=== PATIENT | female | born 1935 | race Caucasian/White ===

== ENCOUNTER 2020-04-16 17:40 | IRF | payer MEDICARE, OTHER, SELFPAY ==
--- NOTE | ~2020-04-16 | CT_ITS ---
EXAMINATION: CT abdomen pelvis wo con DATE: 04/20/2020 15:05 INDICATION: Generalized abdominal pain TECHNIQUE: Computed tomography (CT) of the abdomen and pelvis was performed without intravenous contr ast. The dose-length product (DLP) was 472.91 mGy-cm. Automated exposure control and iterative recons truction technique were employed. COMPARISON: None FINDINGS: There are [id number] sized pleural effusions. There is passive atelectasis of the lo wer lobes. Calcified coronary artery atherosclerosis is noted. There is cardiomegaly. The liver, sple en, pancreas, gallbladder, and adrenal glands are normal. The right kidney is unremarkable. There is a 5.2 cm cyst of the left kidney. There is calcified atherosclerosis of the aorta and many of the ot er arteries. No pathologically enlarged abdominal or pelvic lymph nodes are identified. There are mul tiple distended loops of small bowel without focal transition point is identified. There is a small v olume of ascites small bowel mesentery pelvis. There are bilateral L5 pars defects with grade 1 anter olisthesis of L5 on S1. There are changes of right hip arthroplasty with a small amount of gas seen o verlying the lateral aspect of the hip, consistent with recent surgery. IMPRESSION: 1. Dilated small bowel, consistent with ileus versus obstruction. 2. Changes of recent right hip arthroplasty. 3. Small to moderate-sized pleural effusions. Reviewed, dictated and finalized at location A.
--- NOTE | ~2020-04-16 | XR_ITS ---
EXAMINATION: XR abdomen/kub 1V DATE: 04/21/2020 11:37 INDICATION: Right upper quadrant abdominal pain. TECHNIQUE: A supine view of the abdomen was obtained. COMPARISON: CT abdomen and pelvis 04/20/2020 FINDINGS: There are dilated loops of small bowel. The colon is normal in caliber. There is a small vo lume of stool in the colon. There is a bipolar right hip hemiarthroplasty. IMPRESSION: 1. Persistently dilated small bowel, consistent with adynamic ileus versus small bowel obstruction. Reviewed, dictated and finalized at location A. IMPRESSION: 1. Persistently dilated small bowel, consistent with adynamic ileus versus smal l bowel obstruction.
--- NOTE | ~2020-04-16 | XR_ITS ---
EXAMINATION: XR chest 2V DATE: 04/21/2020 19:29 INDICATION: Decreased breath sounds. Rales. TECHNIQUE: frontal and lateral views of the chest were obtained. COMPARISON: CT abdomen and pelvis dated 04/20/2020 FINDINGS: Small bilateral pleural effusions. Streaky opacities at the bilateral lung bases consistent with asso ciated discoid atelectasis. No pulmonary edema or pneumothorax. Tiny calcified nodules in the right l ower lung zone consistent with old granulomatous disease. Heart size is normal. Dual lead pacemaker s een with leads projecting over the expected locations of the right atrium and right ventricle. Mild t horacic and upper lumbar spondylosis. IMPRESSION: 1. Small bilateral pleural effusions with associated bibasilar atelectasis. Reviewed, dictated and finalized at location A.
--- NOTE | ~2020-04-16 | US_ITS ---
EXAMINATION: US venous doppler [facility] DATE: 04/22/2020 08:36 INDICATION: Lower limb edema. TECHNIQUE: Grayscale ultrasound images without and with compression and Doppler ultrasound images of the bilateral lower extremity veins were obtained. COMPARISON: None. FINDINGS: The visualized portions of right common femoral vein, profunda (deep) femoral vein, femoral vein, pop liteal vein, peroneal veins, posterior tibial veins, and greater saphenous vein outflow are patent. The visualized portions of left common femoral vein, profunda femoral vein, femoral vein, popliteal v ein, peroneal veins, posterior tibial veins, and greater saphenous vein outflow are patent. IMPRESSION: 1. No deep venous thrombosis. Reviewed, dictated and finalized at location A.
--- NOTE | 2020-04-16 18:13 | ADMGEN ---
This patient, Vika Hammonds, was admitted to [facility] Room 222-01. Patient/family oriented to hospital policies and general routines including ID bracelet, bed and alarms, visiting hours, pain management, procedures, bathroom and other care routines, personal items, smoking policy, room service/diet, and visiting hours. Valuables list has been completed. Information on how to activate the Rapid Response Team has been discussed. Patient/Family are encouraged to report perceived risks to care and to ask questions if they do not understand what they are told or what they should do.
[2020-04-16 19:58] VITALS: BP 160/70; PULSE 64; RESP 18; TEMP 36.4; O2SAT 99; BMI 27.1
[2020-04-16 22:00] VITALS: BP 160/59; PULSE 63; RESP 20; TEMP 36.1; O2SAT 98
[2020-04-16] MEDS: HEPARIN SODIUM 5,000 UNITS/ML VIAL 5000 UNITS SUB-Q (22:24)
[2020-04-16 22:27] VITALS: PULSE 70
[2020-04-16] MEDS: ASPIRIN 81 MG ENTERIC TABLET PO (22:27)
[2020-04-16] MEDS: atenoloL 50 MG TABLET 100 MG PO (22:27)
[2020-04-16] MEDS: SENNA/DOCUSATE SODIUM TABLET 1 TAB PO (22:28)
[2020-04-16] MEDS: SIMVASTATIN 20 MG TABLET PO (22:29)
[2020-04-16] MEDS: QUEtiapine FUMARATE 25 MG TABLET 50 MG PO (22:29)
[2020-04-16] MEDS: POLYSACCHARIDE IRON COMPLEX 150 MG CAPSULE PO (22:29)
[2020-04-16] MEDS: AMPICILLIN TRIHYDRATE 500 MG CAPSULE PO (22:31)
[2020-04-17] VITALS (12 sets, daily range): BP systolic 136–163; BP diastolic 62–73; PULSE 60–90; RESP 14–18; TEMP 36.3–36.8; O2SAT 95–100; BMI 27.1
--- NOTE | 2020-04-17 01:29 | PCRCNOTE ---
PT ORDERED ON ALBUTEROL AND ATROVENT TREATMENTS TID_RT BUT THE NEBULIZER ORDER WAS NOT ENTERED; THEREFORE, RT WAS UNAWARE. THIS WAS EXPLAINED TO GLADYS MOREIRA WHEN SHE MADE RT AWARE OF ORDER AT 0.
[2020-04-17 05:19] LABS: Basophils Absolute Auto 0.1 K/mm3 (0.0-0.1); Basophils Percent Auto 0.9 % (0.2-1.2); Eosinophils Absolute Auto 0.2 K/mm3 (0-0.3); Eosinophils Percent Auto 1.7 % (0-4.4); Hematocrit 29.3 % (37.0-47.0); Immature Granulocyte Absolute 0.09 K/mm3 (0.00-0.031); Immature Granulocyte Percent A 0.8 % (0-0.5); Lymphocytes Absolute Auto 0.99 K/mm3 (0.9-3.2); Lymphocytes Percent Auto 8.6 % (18.3-44.2); Mean Corpuscular HGB Conc 30.7 g/dl (32-36); Mean Corpuscular Hemoglobin 28.7 pg (26-34); Mean Corpuscular Volume 93.3 fl (80-100); Mean Platelet Volume 10.4 fl (7.4-10.4); Monocytes Absolute Auto 0.6 K/mm3 (0.1-0.6); Monocytes Percent Auto 5.5 % (2.6-8.5); Neutrophils Absolute Auto 9.5 K/mm3 (1.3-6.7); Neutrophils Percent Auto 82.5 % (45.5-73.1); Platelet Count Result 466 k/mm3 (150-375); Red Blood Count 3.14 M/mm3 (4.2-5.4); Red Cell Distribution Width 16.9 % (11.5-14.5); White Blood Count 11.5 K/mm3 (4.5-10.0)
[2020-04-17] MEDS: MINOCYCLINE HCL 50 MG CAPSULE 100 MG PO ×2 (05:24→19:01)
[2020-04-17] MEDS: LEVOTHYROXINE SODIUM 75 MCG TABLET PO (05:24)
[2020-04-17] MEDS: AMPICILLIN TRIHYDRATE 500 MG CAPSULE PO ×3 (05:24→21:05)
[2020-04-17] MEDS: HEPARIN SODIUM 5,000 UNITS/ML VIAL 5000 UNITS SUB-Q ×3 (05:24→21:05)
[2020-04-17 05:37] LABS: Hemoglobin A1C 4.9 % (<5.7)
[2020-04-17 06:00] LABS: Anion Gap 6 mmol/L (8-16); Blood Urea Nitrogen 33 mg/dL (7-17); Calcium 7.7 mg/dL (8.4-10.2); Carbon Dioxide 23 mmol/L (22-30); Chloride 105 mmol/L (98-107); Estimated CRCL calculation 20 ml/min; Estimated Glomerular Filt Rate 27; Glucose 98 mg/dL (65-105); Potassium 3.7 mmol/L (3.4-5.0); Sodium 134 mmol/L (137-145)
[2020-04-17 06:51] LABS: Glucose Point of Care 106 (65-105)
[2020-04-17] MEDS: IPRATROPIUM BR 0.02% INH SOLN 0.5 MG/2.5 ML VIAL INHALATION ×3 (07:34→20:08)
[2020-04-17] MEDS: ALBUTEROL SULFATE NEB 2.5 MG/0.5 ML INH INHALATION ×3 (07:34→20:08)
[2020-04-17] MEDS: atenoloL 50 MG TABLET 100 MG PO ×2 (09:19→20:26)
[2020-04-17] MEDS: amLODIPine BESYLATE 5 MG TABLET 10 MG PO (09:19)
[2020-04-17] MEDS: allopurinoL 100 MG TABLET PO (09:19)
[2020-04-17] MEDS: POLYSACCHARIDE IRON COMPLEX 150 MG CAPSULE PO ×2 (09:20→20:28)
[2020-04-17] MEDS: FUROSEMIDE 40 MG TABLET PO (09:20)
[2020-04-17] MEDS: hydrALAZINE HCL 25 MG TABLET 75 MG PO ×3 (09:20→19:01)
[2020-04-17] MEDS: POTASSIUM CHLORIDE 20 MEQ TABLET.ER PO (09:21)
--- NOTE | 2020-04-17 10:41 | PM.IMHP ---
H&P: HPI History of Present Illness Date/Time: 04/17/20 10:41 Chief complaint: Post op wound infection Right hip Narrative: Vika Hammonds is a 84 year old female who is admitted to our acute rehab with rehab impairment category of 20 - miscellaneous The to logic diagnosis is postoperative wound infection of right hip. The patient was seen [id number] at 10:00 a.m. on April 17, 2020 Next The patient is an 84-year-old right-handed 1 who is postop from initial injury of a hip fracture on February 23, 2020 and is status post bipolar hip hemiarthroplasty on February 26, 2020. The patient developed a hematoma that got infected. She was admitted to [facility] in [place] on March 23, 2020 for additional surgery for debridement. There was no involvement of the bone or joint however the wound cultures grew E faecalis and the blood cultures were positive for strep mitis. Ibrahima showed no endocarditis. Echo showed ejection fraction of 55 to 60% with no obvious diastolic dysfunction. She was discharged on April 02 on IV vancomycin. However at home she started experiencing increasing symptoms of bilateral lower extremity swelling and increased hip pain. Her laboratory values showed and increasing white cell count and she was readmitted to [facility] on April 06, 2020 on her current vancomycin regimen. CT scan showed fluid buildup with likely fibrosis, and the wound drainage showed gram positive cocci on the Gram stain. Surgery was consulted and felt that her drainage or change warrant surgical intervention. The patient underwent an irrigation and debridement of right hip on April 08, [address] Fountain. Hemo back drains were placed. Infectious Disease was consulted and she was placed on IV Linezolid I and cefepime renal dosing. Medical complications included progressive rather postoperative wound infection of the right hip, cellulitis of the right hip, acute kidney injury, hyponatremia, bilateral lower extremity edema, postoperative pain, hyperglycemia, leukocytosis acute blood-loss anemia, elevated glucose and dehydration. The patient is awake and alert very well with it she will be discharged dose on subcutaneous heparin for DVT prophylaxis The patient does not have anything to suggest COVID infection has not traveled outside and does not have any upper lower system and respiratory system Therapy was initiated at the acute care facility and the patient was transferred to us from [facility] on April 16, 2020 The patient has had major surgery in the 100 days prior to admission. The patient has had falls in the past year. The patient has had falls with injury in the past year. 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 Patient has a chair lift. She was independent in all ADLs I ADL S and mobility without assistive device patient is retired and lives with her . Patient reported that she walked 3 miles a day prior to admit. The patient denies alcohol tobacco or illicit use of drugs. Family history. First-degree relative will the heart disease hypertension diabetes mellitus. Prior level of function Patient was independent in most of the activities of daily living and walking 7 and 50 feet with no assistive device and completed 14 stairs
[2020-04-17] MEDS: SILVERGEL (ELTA) 45 ML 1 APPLIC TOPICAL (13:29)
--- NOTE | 2020-04-17 14:16 | PCNSR ---
On 04/17/20, the student, Phoebe Steiner, provided care and completed [facility] documentation on this patient. I have reviewed the student's documentation and agree with the findings.
[2020-04-17 16:41] LABS: Glucose Point of Care 112 (65-105)
[2020-04-17 20:22] LABS: Glucose Point of Care 133 (65-105)
[2020-04-17] MEDS: ASPIRIN 81 MG ENTERIC TABLET PO (20:26)
[2020-04-17] MEDS: SIMVASTATIN 20 MG TABLET PO (20:28)
[2020-04-17] MEDS: SENNA/DOCUSATE SODIUM TABLET 1 TAB PO (20:28)
[2020-04-17] MEDS: QUEtiapine FUMARATE 25 MG TABLET 50 MG PO (20:28)
[2020-04-18] VITALS (7 sets, daily range): BP systolic 145–167; BP diastolic 63–69; PULSE 60–87; RESP 12–18; TEMP 36–37.1; O2SAT 97–98
[2020-04-18] MEDS: traMADol HCL (*CRX) 50 MG TABLET PO (03:58)
[2020-04-18] MEDS: HEPARIN SODIUM 5,000 UNITS/ML VIAL 5000 UNITS SUB-Q ×3 (05:56→20:40)
[2020-04-18] MEDS: AMPICILLIN TRIHYDRATE 500 MG CAPSULE PO ×3 (05:56→20:40)
[2020-04-18] MEDS: LEVOTHYROXINE SODIUM 75 MCG TABLET PO (05:57)
[2020-04-18] MEDS: MINOCYCLINE HCL 50 MG CAPSULE 100 MG PO ×2 (05:57→17:38)
[2020-04-18 06:48] LABS: Glucose Point of Care 95 (65-105)
[2020-04-18] MEDS: ALBUTEROL SULFATE NEB 2.5 MG/0.5 ML INH INHALATION ×2 (09:00→20:21)
[2020-04-18] MEDS: IPRATROPIUM BR 0.02% INH SOLN 0.5 MG/2.5 ML VIAL INHALATION ×2 (09:01→20:21)
[2020-04-18] MEDS: atenoloL 50 MG TABLET 100 MG PO ×2 (10:37→20:38)
[2020-04-18] MEDS: POTASSIUM CHLORIDE 20 MEQ TABLET.ER PO (10:38)
[2020-04-18] MEDS: amLODIPine BESYLATE 5 MG TABLET 10 MG PO (10:38)
[2020-04-18] MEDS: POLYSACCHARIDE IRON COMPLEX 150 MG CAPSULE PO ×2 (10:38→20:39)
[2020-04-18] MEDS: hydrALAZINE HCL 25 MG TABLET 75 MG PO ×3 (10:38→17:38)
[2020-04-18] MEDS: allopurinoL 100 MG TABLET PO (10:38)
[2020-04-18] MEDS: FUROSEMIDE 40 MG TABLET PO (10:38)
--- NOTE | 2020-04-18 11:11 | RPD ---
INDIVIDUALIZED PLAN OF CARE FOR Vika Hammonds Brief Synthesis of Pre-Admission Screen, Post-Admission Evaluation and Therapy Evaluations: The patient presents to rehab with a postoperative wound infection of right hip. Comorbidities include acute kidney injury, hyponatremia, bilateral lower extremity edema, post-operative pain, hyperglycemia, leukocytosis, acute blood loss anemia, elevated glucose, dehydration, cataracts, KLUTI KAAH with hearing aides, osteoarthritis, polycythemiavera, diabetes mellitus, hypothyroidism, hyperlipidemia, hypertension, pacemaker placement (vendor [employer]). The complexity of the patient's medical management, nursing, and therapy needs require an inpatient rehab hospital stay with a physician-led interdisciplinary team approach. The patient?s needs will be best met in an intensive program vs. at a lower level of care. The patient requires physician services for medical oversight, management of post-op complications such as acute kidney injury, acute blood loss anemia, leukocytosis, uncontrolled hypertension and cellulitis in setting of present comorbidities, and pain management. The patient requires nursing services for anticoagulation therapy, diabetes training, DVT prophylactics, infection protection, medication management and education, pressure relief, and wound care. Deficits include:ADLs, Balance, Cognition, Endurance, Family Training/Education, Mobility, Pain Management, ROM, Safety, Strength, and Transfers Cost And Risk Analysis Manager/Case Management for: Discharge Planning and Patient/Family Counseling Physical Therapy: 5 days per week for 90 minutes. Treatments may include: Therapeutic Exercise, Gait Training, Neuromuscular Re-education, Transfer Training, Community Reintegration, Bed Mobility, Patient/Family Education, Wheelchair Mobility Group Therapy/Concurrent Therapy Rationales: -Improve attention span during functional activities in a distracted environment. -Enhance problem solving and/or adequate judgment skills during functional activities in a distracted environment. -Promote increased safety awareness in a distracted environment to reduce fall risk with functional tasks, transfers, and ambulation to allow a more safe, self-sufficient return to the home environment. -Improve dynamic balance skills to promote safety and independence with functional activities in a distracted environment for maximum gain. Occupational Therapy: 5 days per week for 90 minutes. Treatments may include: Therapeutic Exercise, Therapeutic Activity, Cognitive Training, Self-Care Transfer Training, Community Reintegration, Home Management, Patient/Family Education, Wheelchair Mobility Training, Energy Conservation Training Group Therapy/Concurrent Therapy Rationales: -Allow therapist to observe and teach generalization and carry-over of skills learned in individual therapy. -Enhance problem solving and sequencing skills during therapeutic activities in a distracted environment. -Promote increased safety awareness in a realistic setting to reduce fall risk with functional tasks due to visual and verbal distractions. -Increase functional level with ADLs, ADL transfers and use of adaptive equipment through therapeutic activities with others while promoting safety to allow a more safe, self-sufficient return home. Medical Prognosis: Good Anticipated Length of Stay: 14 days Rehab Goals: Eating Goal: 06-Independent Oral Hygiene Goal: 06-Independent Toileting Hygiene Goal: 06-Independent Shower/Bathe Self Goal: 05-Setup or Clean Up Assistance Upper Body Dressing Goal: 06-Independent Lower Body Dressing Goal: 05-Setup or Clean Up Assistance Putting On/Taking Off Footwear Goal: 05-Setup or Clean Up Assistance Rolling Left and Right Goal: 06-Independent Sit to Lying Goal: 06-Independent Lying to Sitting on Side of Bed Goal: 06-Independent Sit to Stand Goal: 06-Independent Chair/[id number] Transfer Goal: 06-Independent Toilet Transfer Goal: 06-Independent Ca
--- NOTE | 2020-04-18 11:48 | WPDNEURORHBP ---
Subjective Date/time seen: 04/18/20 11:48 Interval history: this 84-year-old woman is here status post wound infection of the right hip surgery from which she has recuperated she also has renal insufficiency and diabetes where the sugars are fairly decent normal the patient denies any fever chills sore throat nausea vomiting headache Review of Systems Review of Systems: All systems reviewed & are unremarkable except as noted in HPI and below Functional Status Ambulation Ability Ability to Ambulate 10 Feet: Contact Guard Ability to Ambulate 50 Feet With 2 Turns: Contact Guard Ability to Ambulate 150 Feet: Contact Guard Ambulation Assistive Devices: Walker, Wheeled Exam Const: General: comfortable and no acute distress HENMT: General nose exam: Normal nares present Mouth: Yes moist mucous membranes Eyes: General: appearance normal, both eyes and all related structures Neck: Neck: supple and no JVD Resp: Effort & Inspection: normal respiratory effort Auscultation: clear to auscultation bilaterally Cardio: Rate: regular rate Rhythm: regular rhythm GI: GI Palp: Yes Soft to palpation Auscultation: normal bowel sounds Skin: General skin exam: normal color and no rashes or lesions noted Neuro: Other: the patient is awake alert well oriented in time place and person fairly stable moving forward with the therapy and making progress Extrem: Other: the incision at the right hip is clean and healthy Psych: Mental Status: mental status grossly normal Objective Data Vital Signs Vital Signs: Vital Signs - 24 hr 04/17/20 13:05 04/17/20 13:17 04/17/20 14:00 Temperature 36.3 C L Pulse Rate 66 66 90 Respiratory Rate 16 16 16 Blood Pressure 156/73 H Pulse Oximetry 95 04/17/20 20:00 04/17/20 20:08 04/17/20 20:16 Temperature Pulse Rate 87 84 Respiratory Rate 18 18 Blood Pressure Pulse Oximetry 95 04/17/20 20:26 04/17/20 22:00 04/18/20 06:00 Temperature 36.8 C 37.1 C Pulse Rate 80 68 70 Respiratory Rate 14 12 Blood Pressure 136/62 167/69 H Pulse Oximetry 97 97 04/18/20 09:00 04/18/20 09:05 04/18/20 10:37 Temperature Pulse Rate 82 82 82 Respiratory Rate 18 18 Blood Pressure Pulse Oximetry Intake/Output Intake/Output: Intake & Output 04/15/20 04/16/20 04/17/20 04/18/20 23:59 23:59 23:59 23:59 Intake Total 240 720 240 Balance 240 720 240 Meds/Results Medications: Active Medications Generic Name Dose Route Start Last Admin Trade Name Marcos PRN Reason Stop Dose Admin Acetaminophen 650 mg 04/16/20 21:00 Tylenol Tablet PO Q4H PRN Pain (Scale Score 1-3) Albuterol 2.5 mg 04/16/20 20:00 04/18/20 09:00 Albuterol Sulf Neb 2.5mg/0.5ml INHALATION 2.5 mg TIDRT GLADIS Administration Allopurinol 100 mg 04/17/20 09:00 04/18/20 10:38 Zyloprim PO 100 mg DAILY GLADIS Administration Amlodipine Besylate 10 mg 04/17/20 09:00 04/18/20 10:38 Norvasc PO 10 mg DAILY GLADIS Administration Ampicillin 500 mg 04/16/20 22:00 04/18/20 05:56 Ampicillin Trihydrate Capsule PO 500 mg Q8HR GLADIS Administration Aspirin 81 mg 04/16/20 21:00 04/17/20 20:26 Aspirin Ec PO 81 mg HS GLADIS Administration Atenolol 100 mg 04/16/20 21:00 04/18/20 10:37 Tenormin PO 100 mg Q12HR GLADIS Administration Furosemide 40 mg 04/17/20 09:00 04/18/20 10:38 Lasix Tablet PO 40 mg DAILY GLADIS Administration Heparin Sodium (Porcine) 5,000 units 04/16/20 22:00 04/18/20 05:56 Heparin Sodium SUB-Q 5,000 units Q8HR GLADIS Administration Hydralazine HCl 75 mg 04/17/20 09:00 04/18/20 10:38 Apresoline Tablet PO 75 mg TID GLADIS Administration Ipratropium [place] 0.5 mg 04/16/20 20:00 04/18/20 09:01 Atrovent Neb INHALATION 0.5 mg TIDRT GLADIS Administration Levothyroxine Sodium 75 mcg 04/17/20 06:30 04/18/20 05:57 Synthroid PO 75 mcg DAILY@0630 GLADIS Administration Miconazole Nitrate 1 applic
--- NOTE | 2020-04-18 12:00 | PCDIET ---
Nutrition Follow-Up Complete: Inadequate protein intake related to integumentary integrity, as evidenced by lower extremity ulcer(s) and unhealed hip incision. Pt. will consume at least 90% of recommended amount of protein daily. Goal: Progressing towards goal. Continue goal. Pt current nutrition is [facility] Nutrition recommendation: will add Marcellus BID to aid in wound healing Last recorded weight is 67.3 kg, recommend weekly updated wt Bowel Motility: No BM noted Labs Reviewed:Glucose 95 Meds Noted: Tramadol, synthroid, lasix, albuterol, allpurinol, heparin, nifirex, KCL, Senna Additional Notes: Pt on appropriate diet, DBCC. Pt assessed yesterday. Average intake is good at 75%. Adding Marcellus BID today to aid in wound healing. Glucose well controlled today at 95. Following intake, skin, diet adherence, and labs every three days.
--- NOTE | 2020-04-18 13:23 | PCPTNOTE ---
Vika Hammonds was evaluated for a wheeled walker on 04/18/2020 by this physical therapist assistant professor of communication. The wheeled walker will resolve patient's mobility limitations and will be used for ADL's within the home. The patient can safely use the wheeled walker. ?The wheeled walker will resolve the patient?s mobility deficits, including impaired balance and decreased strength.
[2020-04-18] MEDS: SENNA/DOCUSATE SODIUM TABLET 1 TAB PO (20:38)
[2020-04-18] MEDS: QUEtiapine FUMARATE 25 MG TABLET 50 MG PO (20:39)
[2020-04-18] MEDS: SIMVASTATIN 20 MG TABLET PO (20:40)
[2020-04-18] MEDS: ASPIRIN 81 MG ENTERIC TABLET PO (20:40)
[2020-04-19 06:00] VITALS: BP 153/73; PULSE 62; RESP 18; TEMP 36.3; O2SAT 95
[2020-04-19] MEDS: HEPARIN SODIUM 5,000 UNITS/ML VIAL 5000 UNITS SUB-Q ×3 (06:01→20:30)
[2020-04-19] MEDS: LEVOTHYROXINE SODIUM 75 MCG TABLET PO (06:01)
[2020-04-19] MEDS: MINOCYCLINE HCL 50 MG CAPSULE 100 MG PO ×2 (06:01→18:13)
[2020-04-19] MEDS: AMPICILLIN TRIHYDRATE 500 MG CAPSULE PO ×3 (06:01→20:30)
[2020-04-19 06:51] LABS: Glucose Point of Care 121 (65-105)
[2020-04-19 09:30] VITALS: PULSE 62
[2020-04-19] MEDS: atenoloL 50 MG TABLET 100 MG PO ×2 (09:30→20:29)
[2020-04-19] MEDS: FUROSEMIDE 40 MG TABLET PO (09:31)
[2020-04-19] MEDS: amLODIPine BESYLATE 5 MG TABLET 10 MG PO (09:31)
[2020-04-19] MEDS: hydrALAZINE HCL 25 MG TABLET 75 MG PO ×3 (09:31→18:13)
[2020-04-19] MEDS: allopurinoL 100 MG TABLET PO (09:31)
[2020-04-19] MEDS: POLYSACCHARIDE IRON COMPLEX 150 MG CAPSULE PO ×2 (09:31→20:30)
[2020-04-19] MEDS: POTASSIUM CHLORIDE 20 MEQ TABLET.ER PO (09:31)
--- NOTE | 2020-04-19 12:21 | WPDNEURORHBP ---
Subjective Date/time seen: 04/19/20 12:21 84 years old lady being taken care on acute rehab with rehab impairment category of miscellaneous etiological diagnosis a postoperative wound infection of the right hip for the fracture on February 23, 2020 and status post bipolar hip hemiarthroplasty on February 26, 2020 reportedly she developed hematoma which got secondarily infected requiring additional debridement with no involvement of the bone or joint And blood cultures were positive for strep mitis. At present she is receiving minor cycline and ampicillin. She does have mild renal insufficiency Review of Systems Review of Systems: All systems reviewed & are unremarkable except as noted in HPI and below Functional Status Ambulation Ability Ability to Ambulate 10 Feet: Standby Assistance Ability to Ambulate 50 Feet With 2 Turns: Standby Assistance Ability to Ambulate 150 Feet: Contact Guard Ambulation Assistive Devices: Walker, Wheeled Transfers Ability Ability to Transfer In/Out of Chair: Contact Guard Exam Narrative: Exam Narrative: examination reveals her to be awake alert comfortable ear nose throat examination normal moist mucous membranes no drainage heart regular with no murmur lungs clear to auscultation with no rhonchi crepitation abdomen soft nontender skin normal neurologically she is awake alert oriented x3 is speech nor dysphasic not dysarthric follows instructions fairly well generally weak reflexes sluggish the wound is cleaned and healthy Objective Data Vital Signs Vital Signs: Vital Signs - 24 hr 04/18/20 14:00 04/18/20 20:25 04/18/20 22:17 Temperature 36.0 C L 36.5 C Pulse Rate 60 87 63 Respiratory Rate 18 18 18 Blood Pressure 145/63 H 154/67 H Pulse Oximetry 97 98 04/19/20 06:00 04/19/20 09:30 Temperature 36.3 C L Pulse Rate 62 62 Respiratory Rate 18 Blood Pressure 153/73 H Pulse Oximetry 95 Intake/Output Intake/Output: Intake & Output 04/16/20 04/17/20 04/18/20 04/19/20 23:59 23:59 23:59 23:59 Intake Total 240 720 720 Balance 240 720 720 Meds/Results Medications: Active Medications Generic Name Dose Route Start Last Admin Trade Name Freq PRN Reason Stop Dose Admin Acetaminophen 650 mg 04/16/20 21:00 Tylenol Tablet PO Q4H PRN Pain (Scale Score 1-3) Albuterol 2.5 mg 04/16/20 20:00 04/19/20 09:07 Albuterol Sulf Neb 2.5mg/0.5ml INHALATION Not Given TIDRT COUNT INCLUDES THE [facility] Allopurinol 100 mg 04/17/20 09:00 04/19/20 09:31 Zyloprim PO 100 mg DAILY GLADIS Administration Amlodipine Besylate 10 mg 04/17/20 09:00 04/19/20 09:31 Norvasc PO 10 mg DAILY GLADIS Administration Ampicillin 500 mg 04/16/20 22:00 04/19/20 06:01 Ampicillin Trihydrate Capsule PO 500 mg Q8HR GLADIS Administration Aspirin 81 mg 04/16/20 21:00 04/18/20 20:40 Aspirin Ec PO 81 mg HS COUNT INCLUDES THE [facility] Administration Atenolol 100 mg 04/16/20 21:00 04/19/20 09:30 Tenormin PO 100 mg Q12HR GLADIS Administration Furosemide 40 mg 04/17/20 09:00 04/19/20 09:31 Lasix Tablet PO 40 mg DAILY COUNT INCLUDES THE [facility] Administration Heparin Sodium (Porcine) 5,000 units 04/16/20 22:00 04/19/20 06:01 Heparin Sodium SUB-Q 5,000 units Q8HR GLADIS Administration Hydralazine HCl 75 mg 04/17/20 09:00 04/19/20 09:31 Apresoline Tablet PO 75 mg TID COUNT INCLUDES THE [facility] Administration Ipratropium [place] 0.5 mg 04/16/20 20:00 04/19/20 09:08 Atrovent Neb INHALATION Not Given TIDRT COUNT INCLUDES THE [facility] Levothyroxine Sodium 75 mcg 04/17/20 06:30 04/19/20 06:01 Synthroid PO 75 mcg DAILY@0630 COUNT INCLUDES THE [facility] Administration Miconazole Nitrate 1 applic 04/17/20 09:45 04/18/20 17:38 [place] TOPICAL 1 applic BID COUNT INCLUDES THE [facility] Administration Minocycline HCl 100 mg 04/17/20 06:00 04/19/20 06:01 Minocycline Hcl PO 100 mg Q12H COUNT INCLUDES THE [facility] Administration Polysaccharide Iron Complex 150 mg 04/16/20 21:00 04/19/20 09:31 Niferex-150 PO 150 mg Q12HR GLADIS Administration Potassium Chloride 20 meq
[2020-04-19 14:00] VITALS: BP 146/60; PULSE 62; RESP 18; TEMP 36.6; O2SAT 98
[2020-04-19] MEDS: SILVERGEL (ELTA) 45 ML 1 APPLIC TOPICAL (19:00)
[2020-04-19 20:29] VITALS: PULSE 66
[2020-04-19] MEDS: ASPIRIN 81 MG ENTERIC TABLET PO (20:30)
[2020-04-19] MEDS: QUEtiapine FUMARATE 25 MG TABLET 50 MG PO (20:30)
[2020-04-19] MEDS: SIMVASTATIN 20 MG TABLET PO (20:30)
[2020-04-19] MEDS: SENNA/DOCUSATE SODIUM TABLET 1 TAB PO (20:30)
[2020-04-19 21:51] VITALS: BP 148/65; PULSE 62; RESP 18; TEMP 36.4; O2SAT 97
[2020-04-20 05:31] VITALS: BP 149/54; PULSE 63; RESP 18; TEMP 36.3; O2SAT 97
[2020-04-20] MEDS: HEPARIN SODIUM 5,000 UNITS/ML VIAL 5000 UNITS SUB-Q ×3 (06:08→21:47)
[2020-04-20] MEDS: AMPICILLIN TRIHYDRATE 500 MG CAPSULE PO ×3 (06:08→21:47)
[2020-04-20] MEDS: LEVOTHYROXINE SODIUM 75 MCG TABLET PO (06:09)
[2020-04-20] MEDS: MINOCYCLINE HCL 50 MG CAPSULE 100 MG PO (06:09)
[2020-04-20 06:46] LABS: Glucose Point of Care 114 (65-105)
[2020-04-20 09:08] VITALS: PULSE 62
[2020-04-20] MEDS: FUROSEMIDE 40 MG TABLET PO (09:08)
[2020-04-20] MEDS: allopurinoL 100 MG TABLET PO (09:08)
[2020-04-20] MEDS: atenoloL 50 MG TABLET 100 MG PO ×2 (09:08→21:46)
[2020-04-20] MEDS: POTASSIUM CHLORIDE 20 MEQ TABLET.ER PO (09:09)
[2020-04-20] MEDS: amLODIPine BESYLATE 5 MG TABLET 10 MG PO (09:09)
[2020-04-20] MEDS: hydrALAZINE HCL 25 MG TABLET 75 MG PO ×2 (09:09→13:47)
[2020-04-20] MEDS: POLYSACCHARIDE IRON COMPLEX 150 MG CAPSULE PO ×2 (09:10→21:46)
[2020-04-20] MEDS: SILVERGEL (ELTA) 45 ML 1 APPLIC TOPICAL (09:11)
[2020-04-20 13:04] LABS: Basophils Absolute Auto 0.3 K/mm3 (0.0-0.1); Basophils Percent Auto 0.8 % (0.2-1.2); Eosinophils Absolute Auto 0.2 K/mm3 (0-0.3); Eosinophils Percent Auto 0.7 % (0-4.4); Hematocrit 40.7 % (37.0-47.0); Hemoglobin 12.5 g/dL (12.0-15.0); Immature Granulocyte Absolute 0.45 K/mm3 (0.00-0.031); Immature Granulocyte Percent A 1.3 % (0-0.5); Lymphocytes Absolute Auto 1.59 K/mm3 (0.9-3.2); Lymphocytes Percent Auto 4.5 % (18.3-44.2); Mean Corpuscular HGB Conc 30.7 g/dl (32-36); Mean Corpuscular Hemoglobin 28.5 pg (26-34); Mean Corpuscular Volume 92.9 fl (80-100); Mean Platelet Volume 10.8 fl (7.4-10.4); Monocytes Absolute Auto 1.4 K/mm3 (0.1-0.6); Neutrophils Absolute Auto 31.5 K/mm3 (1.3-6.7); Neutrophils Percent Auto 88.7 % (45.5-73.1); Platelet Count Result 867 k/mm3 (150-375); Red Blood Count 4.38 M/mm3 (4.2-5.4); Red Cell Distribution Width 17.2 % (11.5-14.5); White Blood Count 35.5 K/mm3 (4.5-10.0)
--- NOTE | 2020-04-20 13:09 | PCPTNOTE ---
Attempted to see patient at 0945 for Physical Therapy treatment; patient refused at that time due to feeling ill. Attempted again at 1300 and patient refused again stating she was having stomach cramps and didn't feel well.
[2020-04-20 13:16] LABS: Alanine Aminotransferase 7 U/L (4-35); Albumin Level 3.1 g/dL (3.5-5.1); Alkaline Phosphatase 72 U/L (38-126); Anion Gap 8 mmol/L (8-16); Aspartate Amino Transferase 19 U/L (14-36); Bilirubin,Total 0.4 mg/dL (0.2-1.3); Blood Urea Nitrogen 35 mg/dL (7-17); Calcium 8.8 mg/dL (8.4-10.2); Carbon Dioxide 25 mmol/L (22-30); Chloride 101 mmol/L (98-107); Estimated CRCL calculation 20 ml/min; Estimated Glomerular Filt Rate 27; Glucose 133 mg/dL (65-105); Potassium 3.7 mmol/L (3.4-5.0); Sodium 134 mmol/L (137-145)
[2020-04-20 14:00] VITALS: BP 161/69; PULSE 62; RESP 16; TEMP 36.1; O2SAT 97
--- NOTE | 2020-04-20 15:20 | PM.IMCN ---
Assessment and Plan Assessment and plan (1) Abdominal pain: Code(s): R10.9 - Unspecified abdominal pain Status: Acute Assessment and Plan: I am awaiting the results of her CT scan. Reviewing it myself I saw dilated loops of bowel with some gas buildup. I am awaiting final report per Radiology. (2) Renal insufficiency: Code(s): N28.9 - Disorder of kidney and ureter, unspecified Status: Acute Assessment and Plan: continue to monitor. Hold off on any nephrotoxic medications. I was not able to do a CT of the abdomen with contrast due to the renal failure. (3) DM2 (diabetes mellitus, type 2): Code(s): E11.9 - Type 2 diabetes mellitus without complications Status: Chronic Assessment and Plan: It looks like they have been checking her blood sugar every morning. I am not sure with her latest A1c was. (4) Hypothyroidism: Code(s): E03.9 - Hypothyroidism, unspecified Status: Chronic Assessment and Plan: Continue the patient's levothyroxine. (5) Status post right hip replacement: Code(s): Z96.641 - Presence of right artificial hip joint Status: Acute Assessment and Plan: It looks like patient has had 3 surgeries on that right hip. It has been very complicated with infectious disease. Infectious Disease has seen the patient in the past. She does have leukocytosis. It looks like patient is on oral ampicillin. She has had blood cultures in the past. (6) Polycythemia vera: Code(s): D45 - Polycythemia vera Status: Acute Assessment and Plan: I am not sure she still being followed by environmental compliance specialist. (7) Gout: Code(s): M10.9 - Gout, unspecified Status: Chronic Assessment and Plan: she is not having any complications at this time. Who she appears to be on allopurinol (8) Hypertension: Code(s): I10 - Essential (primary) hypertension Status: Chronic Assessment and Plan: continue with her hydralazine, atenolol, Norvasc, and Lasix (9) Hyperlipidemia: Code(s): E78.5 - Hyperlipidemia, unspecified Status: Chronic Assessment and Plan: continue with Zocor. HPI Data of Consult Consult date: 04/20/20 Requesting Physician: Santosh Gallardo MD Primary Care Provider: Roldan KangJr., PA Consult Narrative Narrative: Vika Hammonds is a 84 year old female Who is doing rehab in [facility]. The patient looks like she fell on Tuesday at February 22 and went to [facility] on the and had surgery on her right hip somewhere around the she had a bipolar hip hemo arthroplasty there at [facility]. She developed a hematoma in that got infected. The patient was admitted March 23, 2020 for additional surgery for debridement. There was no involvement of the bone of the joint however her cultures grew E faecallis and blood cultures grew strep Mitas. The patient did have a JACOB and there was no endocarditis. The patient does have an obvious murmur to the right side of her chest possibly aortic murmur. According to the the patient went home and was taking vancomycin and Rocephin. It looks like on April 06 she was readmitted to [facility] your CT scan showed fluid buildup with likely fibrosis and that wound drainage showed gram-positive cocci on the Gram Stain. Surgery was consulted felt that her warranted intervention. The patient underwent a irrigation debridement right hip on April 08, [address] Fountain. She had drains possibly wound VAC to the right hip. I was told by the nurses that the patient had pulled out her wound VAC When she became confused. She was seen by infectious disease. She was placed on IV lens avoid and cefepime. At some point the when the patient was on vancomycin she went into acute renal failure and had vancomycin toxicity. The patient is on subcu heparin for DVT prophylaxis. The patient had venous Do
--- NOTE | 2020-04-20 19:30 | PC.NURSE ---
Labs drawn this afternoon, in response to concerns about patient being lethargic, poor appetite, not completing therapy sessions for the day. Results were rec'd and called to Dr. Gonzales who suggested calling previous surgeon or hospitalist here for eval of increased WBC. Also made aware that patient is c/o upper right quadrant abdominal pain. I phoned ([place]) who is patients surgeon for her hip, no return call after 30minutes, i then called for our hospitalist consult, Archana Keys reviewed records, ordered CT scan abdomen and pelvis. She visited and spent much time with this patient and her . also orders were rec'd for blood and wound cultures which were done. consults ordered for surgery and infectious disease. orders were also rec'd for N/G tube to be placed, when discussing this with patient and , she has refused this intervention. Archana Keys made aware.will continue monitoring patient, at end of shift ([id number]) she stated that the abdominal pain was decreasing
[2020-04-20 19:51] LABS: Lactic Acid Reflex 1.9 mmol/L (0.7-2.1)
[2020-04-20 21:46] VITALS: PULSE 62
[2020-04-20] MEDS: ASPIRIN 81 MG ENTERIC TABLET PO (21:46)
[2020-04-20] MEDS: SENNA/DOCUSATE SODIUM TABLET 1 TAB PO (21:46)
[2020-04-20] MEDS: QUEtiapine FUMARATE 25 MG TABLET 50 MG PO (21:46)
[2020-04-20] MEDS: SIMVASTATIN 20 MG TABLET PO (21:47)
[2020-04-20 22:00] VITALS: BP 161/64; PULSE 63; RESP 16; TEMP 36.3; O2SAT 97
[2020-04-21 00:46] LABS: Add Urine Microscopic? YES; Appearance Urine Clear (Clear); Bilirubin Urine Negative (Negative); Blood Urine Negative (Negative); Color Urine Yellow (Yellow); Glucose Urine UA Negative (Negative); Ketones Urine Negative (Negative); Leukocyte Esterase Ur Trace LEU/UL (NEGATIVE); Mucus Urine Rare /lpf; Nitrate Urine Negative (Negative); Protein Urine Negative (Negative); RBC Urine 0-2 /hpf (0-2); Urobilinogen Urine Negative mg/dL (<2.0)
[2020-04-21 05:26] LABS: Albumin Level 2.3 g/dL (3.5-5.1); Alkaline Phosphatase 57 U/L (38-126); Anion Gap 4 mmol/L (8-16); Aspartate Amino Transferase 15 U/L (14-36); Bilirubin,Total 0.3 mg/dL (0.2-1.3); Blood Urea Nitrogen 33 mg/dL (7-17); Calcium 8.1 mg/dL (8.4-10.2); Carbon Dioxide 28 mmol/L (22-30); Chloride 103 mmol/L (98-107); Estimated CRCL calculation 21 ml/min; Estimated Glomerular Filt Rate 29; Glucose 104 mg/dL (65-105); Lactate Dehydrogenase 661 U/L (313-618); Lipase 39 U/L (23-300); Magnesium 1.7 mg/dL (1.6-2.3); Sodium 135 mmol/L (137-145)
[2020-04-21 05:31] LABS: Alanine Aminotransferase < 6 U/L (4-35)
[2020-04-21 06:00] VITALS: BP 153/57; PULSE 61; RESP 16; TEMP 36.2; O2SAT 98
[2020-04-21] MEDS: LEVOTHYROXINE SODIUM 75 MCG TABLET PO (06:08)
[2020-04-21] MEDS: HEPARIN SODIUM 5,000 UNITS/ML VIAL 5000 UNITS SUB-Q ×3 (06:08→21:05)
[2020-04-21] MEDS: MINOCYCLINE HCL 50 MG CAPSULE 100 MG PO ×2 (06:08→18:08)
[2020-04-21] MEDS: AMPICILLIN TRIHYDRATE 500 MG CAPSULE PO ×3 (06:08→21:06)
[2020-04-21 07:16] LABS: Glucose Point of Care 105 (65-105)
[2020-04-21 07:55] LABS: Basophils Absolute Auto 0.1 K/mm3 (0.0-0.1); Basophils Percent Auto 0.5 % (0.2-1.2); Eosinophils Absolute Auto 0.2 K/mm3 (0-0.3); Hematocrit 29.6 % (37.0-47.0); Hemoglobin 9.2 g/dL (12.0-15.0); Immature Granulocyte Absolute 0.14 K/mm3 (0.00-0.031); Immature Granulocyte Percent A 0.9 % (0-0.5); Lymphocytes Absolute Auto 1.04 K/mm3 (0.9-3.2); Lymphocytes Percent Auto 6.7 % (18.3-44.2); Mean Corpuscular HGB Conc 31.1 g/dl (32-36); Mean Corpuscular Hemoglobin 28.4 pg (26-34); Mean Corpuscular Volume 91.4 fl (80-100); Mean Platelet Volume 10.9 fl (7.4-10.4); Monocytes Absolute Auto 0.8 K/mm3 (0.1-0.6); Monocytes Percent Auto 4.9 % (2.6-8.5); Neutrophils Absolute Auto 13.4 K/mm3 (1.3-6.7); Platelet Count Result 460 k/mm3 (150-375); Red Blood Count 3.24 M/mm3 (4.2-5.4); Red Cell Distribution Width 17.1 % (11.5-14.5); White Blood Count 15.6 K/mm3 (4.5-10.0)
[2020-04-21] MEDS: SILVERGEL (ELTA) 45 ML 1 APPLIC TOPICAL (09:40)
--- NOTE | 2020-04-21 10:14 | WPDNEURORHBP ---
Subjective Date/time seen: 04/21/20 10:14 84 years old lady with postoperative wound infection of the right hip where she underwent treatment for the fracture on February 23, 2020 that is bipolar hip [place] arthroplasty on February 26, 2020 unfortunately developed hematoma with secondary infection and was receiving p.o. antibiotics that is my minocycline and ampicillin yesterday developed lower abdominal discomfort a CT scan of the abdomen which revealed dilated loops of the bowel with some gas buildup the white blood cell count went up to 35.5 had no blood in the stools. CT of the abdomen revealed dilated small bowel consistent with the easiest versus obstruction and small to moderate size pleural effusion. Seen by the hospitalist kept NPO this morning she is feeling hungry white blood count has come down she is afebrile the awaiting for the flat plate of abdominal before the feeding started Functional Status Ambulation Ability Ability to Ambulate 10 Feet: Standby Assistance Ability to Ambulate 50 Feet With 2 Turns: Standby Assistance Ability to Ambulate 150 Feet: Contact Guard Ambulation Assistive Devices: Walker, Wheeled Transfers Ability Ability to Transfer In/Out of Chair: Contact Guard Exam Narrative: Exam Narrative: examination reveals her to be awake alert cooperative asking for the food ear nose throat examination normal neck is supple with no meningeal signs no restricted range of motion heart regular lungs clear abdomen is soft normal bowel sounds neurological examination essentially unchanged Objective Data Vital Signs Vital Signs: Vital Signs - 24 hr 04/20/20 14:00 04/20/20 21:46 04/20/20 22:00 Temperature 36.1 C L 36.3 C L Pulse Rate 62 62 63 Respiratory Rate 16 16 Blood Pressure 161/69 H 161/64 H Pulse Oximetry 97 97 04/21/20 06:00 Temperature 36.2 C L Pulse Rate 61 Respiratory Rate 16 Blood Pressure 153/57 H Pulse Oximetry 98 Intake/Output Intake/Output: Intake & Output 04/18/20 04/19/20 04/20/20 04/21/20 23:59 23:59 23:59 23:59 Intake Total 720 240 330 Balance 720 240 330 Meds/Results Medications: Active Medications Generic Name Dose Route Start Last Admin Trade Name Freq PRN Reason Stop Dose Admin Acetaminophen 650 mg 04/16/20 21:00 Tylenol Tablet PO Q4H PRN Pain (Scale Score 1-3) Albuterol 2.5 mg 04/19/20 13:13 Albuterol Sulf Neb 2.5mg/0.5ml INHALATION TIDRT PRN Shortness Of Breath Or Wheezing Allopurinol 100 mg 04/17/20 09:00 04/20/20 09:08 Zyloprim PO 100 mg DAILY [facility] Administration Amlodipine Besylate 10 mg 04/17/20 09:00 04/20/20 09:09 Norvasc PO 10 mg DAILY GLADIS Administration Ampicillin 500 mg 04/16/20 22:00 04/21/20 06:08 Ampicillin Trihydrate Capsule PO 500 mg Q8HR GLADIS Administration Aspirin 81 mg 04/16/20 21:00 04/20/20 21:46 Aspirin Ec PO 81 mg HS [facility] Administration Atenolol 100 mg 04/16/20 21:00 04/20/20 21:46 Tenormin PO 100 mg Q12HR [facility] Administration Furosemide 40 mg 04/17/20 09:00 04/20/20 09:08 Lasix Tablet PO 40 mg DAILY [facility] Administration Heparin Sodium (Porcine) 5,000 units 04/16/20 22:00 04/21/20 06:08 Heparin Sodium SUB-Q 5,000 units Q8HR [facility] Administration Hydralazine HCl 75 mg 04/17/20 09:00 04/20/20 18:31 Apresoline Tablet PO Not Given TID [facility] Potassium Chloride 500 mls @ 125 mls/hr 04/21/20 09:37 Kcl 40 Meq/D5w 500 Ml Peripheral IVPB 04/21/20 13:36 ONCE ONE Ipratropium [place] 0.5 mg 04/19/20 13:13 Atrovent Neb INHALATION TIDRT PRN Shortness Of Breath Or Wheezing Levothyroxine Sodium 75 mcg 04/17/20 06:30 04/21/20 06:08 Synthroid PO 75 mcg DAILY@0630 [facility] Administration Miconazole Nitrate 1 applic 04/17/20 09:45 04/20/20 17:31 Aloe [place] TOPICAL 1 applic BID [facility] Administration Minocycline HCl 100 mg 04/17/20 06:00 04/21/20 06:08 Minocycline Hcl PO 100 mg Q12H [facility]
[2020-04-21 12:41] VITALS: PULSE 61
--- NOTE | 2020-04-21 13:22 | PCNFU ---
Nutrition Follow-Up Complete: Inadequate protein intake related to integumentary integrity, as evidenced by lower extremity ulcer(s) and unhealed hip incision. Pt. will consume recommended daily amount of calories and protein needs. Goal: Not met Pt. currently experiencing pain in upper right quadrant of abdomen. X-ray consistent with adynamic ileus versus small bowel obstruction. Overall calorie and protein intake is inadequate, recommend supplemental parenteral nutrition if persists. Pt. current nutrition is NPO, diet is appropriate for physical status. Last recorded weight is 67.3 kg. Bowel Motility: nurse reports BM earlier today Labs Reviewed: Hgb (9.2), Hct (29.6), Na (135), BUN (33), Cr (1.7) Meds Noted: Ultram, Kcl tablet, Ampicillin Additional Notes: Recommend updated weight recording from one week admission date. Integumentary integrity consists of rash on right anterior thigh, ulcer of unknown etiology on lower right leg with edematous surrounding tissue, and healing incision wound on right hip. Initially follow up with patient every three days.
--- NOTE | 2020-04-21 13:44 | WPDINFPN2 ---
Progress Note: A&P Assessment and Plan (1) Postoperative wound infection of right hip: Code(s): T81.49XA - Infection following a procedure, other surgical site, initial encounter Status: Acute Assessment and Plan: 1. SSI R hip, doing well 2. Leukocytosis, due to her polycythemia rubra vera REC Ampicillin and Minocycline through 05/05. See Dr. Pérez in office thereafter. Subjective Date/time seen: 04/21/20 13:44 Objective Data Vital Signs Vital Signs: Vital Signs - 24 hr 04/20/20 14:00 04/20/20 21:46 04/20/20 22:00 Temperature 36.1 C L 36.3 C L Pulse Rate 62 62 63 Respiratory Rate 16 16 Blood Pressure 161/69 H 161/64 H Pulse Oximetry 97 97 04/21/20 06:00 04/21/20 12:41 Temperature 36.2 C L Pulse Rate 61 61 Respiratory Rate 16 Blood Pressure 153/57 H Pulse Oximetry 98 Intake/Output Intake/Output: Intake & Output 04/18/20 04/19/20 04/20/20 04/21/20 23:59 23:59 23:59 23:59 Intake Total 720 240 330 Balance 720 240 330 Meds/Results Medications: Active Medications Generic Name Dose Route Start Last Admin Trade Name Freq PRN Reason Stop Dose Admin Acetaminophen 650 mg 04/16/20 21:00 Tylenol Tablet PO Q4H PRN Pain (Scale Score 1-3) Albuterol 2.5 mg 04/19/20 13:13 Albuterol Sulf Neb 2.5mg/0.5ml INHALATION TIDRT PRN Shortness Of Breath Or Wheezing Allopurinol 100 mg 04/17/20 09:00 04/21/20 12:41 Zyloprim PO Not Given DAILY [facility] Amlodipine Besylate 10 mg 04/17/20 09:00 04/21/20 12:41 Norvasc PO Not Given DAILY [facility] Ampicillin 500 mg 04/16/20 22:00 04/21/20 06:08 Ampicillin Trihydrate Capsule PO 500 mg Q8HR [facility] Administration Aspirin 81 mg 04/16/20 21:00 04/20/20 21:46 Aspirin Ec PO 81 mg HS [facility] Administration Atenolol 100 mg 04/16/20 21:00 04/21/20 12:41 Tenormin PO Not Given Q12HR [facility] Furosemide 40 mg 04/17/20 09:00 04/21/20 12:41 Lasix Tablet PO Not Given DAILY [facility] Heparin Sodium (Porcine) 5,000 units 04/16/20 22:00 04/21/20 06:08 Heparin Sodium SUB-Q 5,000 units Q8HR [facility] Administration Hydralazine HCl 75 mg 04/17/20 09:00 04/21/20 12:41 Apresoline Tablet PO Not Given TID [facility] Ipratropium [place] 0.5 mg 04/19/20 13:13 Atrovent Neb INHALATION TIDRT PRN Shortness Of Breath Or Wheezing Levothyroxine Sodium 75 mcg 04/17/20 06:30 04/21/20 06:08 Synthroid PO 75 mcg DAILY@0630 [facility] Administration Miconazole Nitrate 1 applic 04/17/20 09:45 04/21/20 09:42 Aloe [place] TOPICAL 1 applic BID [facility] Administration Minocycline HCl 100 mg 04/17/20 06:00 04/21/20 06:08 Minocycline Hcl PO 100 mg Q12H [facility] Administration Polysaccharide Iron Complex 150 mg 04/16/20 21:00 04/21/20 12:41 Niferex-150 PO Not Given Q12HR [facility] Quetiapine Fumarate 50 mg 04/16/20 21:00 04/20/20 21:46 Seroquel PO 50 mg HS [facility] Administration Senna/Docusate Sodium 1 tab 04/16/20 21:00 04/20/20 21:46 Senokot S Tablet PO 1 tab HS [facility] Administration Silver Nitrate 1 applic 04/17/20 09:00 04/21/20 09:40 Silvergel TOPICAL 1 applic DAILY [facility] Administration Simvastatin 20 mg 04/16/20 21:00 04/20/20 21:47 Zocor PO 20 mg HS [facility] Administration Tramadol HCl 50 mg 04/16/20 21:00 04/18/20 03:58 Ultram PO 50 mg Q6H PRN Administration Pain, Moderate Wound Care/Dressing Products 3 patch 04/17/20 09:00 04/21/20 09:40 Mepilex Transfer Drsg 6x8 TOPICAL 3 patch QAM [facility] Administration Radiology Results: ITS Impressions Abdomen/Pelvis CT 04/20/20 17:11 IMPRESSION: 1. Dilated small bowel, consistent with ileus versus obstruction. 2. Changes of recent right hip arthroplasty. 3. Small to moderate-sized pleural effusions. Abdomen X-Ray 04/21/20 12:01 IMPRESSION: 1. Persistently dilated small bowel, consistent with adynamic ileus versus small bowel obstruction.
[2020-04-21 14:00] VITALS: BP 146/70; PULSE 64; RESP 18; TEMP 36.1; O2SAT 93
--- NOTE | 2020-04-21 14:10 | PCNSR ---
On 04/21/20, the student, Phoebe Steiner, provided care and completed [facility] documentation on this patient. I have reviewed the student's documentation and agree with the findings.
--- NOTE | 2020-04-21 14:10 | PM.CNGS ---
Assessment and Plan Assessment and plan (1) Abdominal pain: Qualifiers: Abdominal location: generalized Qualified Code(s): R10.84 - Generalized abdominal pain Code(s): R10.9 - Unspecified abdominal pain Status: Acute Assessment and Plan: I have reviewed the CT and abdominal x-ray. This appears most likely to be an ileus or constipation as patient does not have any prior history of abdominal surgery therefore adhesions causing an obstruction seems less likely. Other causes of obstruction such as a mass, volvulus, or stricture were not visualized on this CT. Her exam today is essentially benign and I do not see any surgical causes for her symptoms. I will allow her to have clear liquid diet and try stimulating the bowels with a Dulcolax suppository and MiraLax. Will continue to follow along with patient and advanced diet if she is tolerating this with improved bowel function. (2) Abnormal CT of the abdomen: Code(s): R93.5 - Abnormal findings on diagnostic imaging of other abdominal regions, including retroperitoneum Status: Acute Additional Plan Thank you very much for allowing me to aid in the care of this patient. History of Present Illness Consult details Consult date: 04/21/20 Reason for consult: abdominal pain Requesting physician: Gwyn Gonzales MD Narrative: This is an 84-year-old woman who I am asked to see for abdominal pain. She is currently an acute rehab after hip surgery. She had an infection in her hip that required multiple surgeries. She was experiencing some abdominal pain and cramping yesterday. CT of her abdomen and pelvis with was obtained yesterday which showed evidence of dilated small bowel consistent with ileus or obstruction. No transition point was identified. The patient did have a small bowel movement yesterday and she states that she has had 2 small bowel movements today. Her abdominal pain has resolved and she denies any nausea. She denies any prior history of abdominal surgery. She has been up ambulating with therapy. Review of Systems Review of Systems: All systems reviewed & are unremarkable except as noted in HPI and below Eyes: Eyes: Denies change in vision ENT: Denies hearing loss, Denies neck pain and Denies sore throat Cardiovascular: Cardiovascular: Denies chest pain and Denies dyspnea Respiratory: Respiratory: Denies cough, Denies dyspnea and Denies wheezing Gastrointestinal: Gastrointestinal: Reports as per HPI Genitourinary: Genitourinary: Denies hematuria and Denies dysuria Musculoskeletal: Musculoskeletal: Denies arthralgias, Denies joint swelling and Denies neck pain Allergic/Immunologic: Allergic/Immunologic: Denies wheezing PMFSH Past Medical History Medical History Acute kidney injury 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 Her primary care doctor's Dr. Steven Barnes. Her is the durable power district attorney for healthcare. She desires to be a full code. Lifelong nonsmoker no alcohol marijuana or drug use. Smoking status: Never smoker Second hand tobacco smoke exposure: Yes (father) Alcohol intake: never Substan
--- NOTE | 2020-04-21 14:12 | PC.NURSE ---
surgery and infectious disease consults were contacted this morning to see patient today. also rec'd orders for IV potassium but i was unsuccessful in obtaining a patent IV site. Called Annita in [facility], she stated it would be a couple of hours for her to be able to place IV. patient is having ice chips and tolerating these without nausea or vomiting. Surgeon here this afternoon, awaiting orders. I have spoken to the daughter several times, is not here yet
--- NOTE | 2020-04-21 15:05 | CONS_ITS ---
DATE OF CONSULTATION: 04/21/2020 REASON FOR CONSULTATION: Leukocytosis and surgical site infection. HISTORY OF PRESENT ILLNESS: The patient is an 84-year-old female who fell and broke her right hip on March 01. She presented to [facility], was admitted. She was taken to the operating room on March 03 and underwent bipolar hip hemiarthroplasty. She recovered initially, but unfortunately developed a hematoma in the hip which then became secondarily infected with acinetobacter and enterococcus. Dr. Pérez saw her at the time and recommended therapy with ceftriaxone and vancomycin. She was discharged home with followup but unfortunately developed recurrent drainage from the right hip and was readmitted to [facility] on April 06. She was found to have renal insufficiency and vancomycin was stopped. She was instead given cefepime and linezolid initially, then changed to ampicillin and minocycline IV, now day #14 of total antibiotics with those 2 agents. She was taken back to the operating room after admission and now is postop day #13 from debridement of her right hip wound. Dr. Fountain found some fibrotic material and devitalized soft tissue. No violation of the fascia. There was no purulence encountered. She had a white blood cell count of 13.1 on April 15 and was transferred to this hospital on the for rehabilitation. She has had leukocytosis since admission, higher yesterday and consultation requested today. On questioning, she does note chronic leukocytosis. Review of her available hospital records from [facility] indicates the same. She has been on no corticosteroids. Her ampicillin and minocycline continue. She has not required any IV antibiotics nor any further surgical intervention. She feels like the therapy is progressing well and can bear most of her weight on the hip. There has been no wound drainage, diarrhea, nausea, anorexia, or skin rashes. She did not require dialysis during her prior admissions nor here. ALLERGIES: LISINOPRIL, CAUSED ITCHING. PRESENT MEDICATIONS: List reviewed. No immunosuppressants. HABITS: No tobacco. No alcohol. PAST MEDICAL HISTORY: In addition to the above, cataract surgery, bunionectomy, and bilateral breast biopsies. She has had previous left 2nd toe amputation for crowding as well as some type of right first toe surgery, both in the distant past. She has a pacemaker in place, type 2 diabetes mellitus, gout, hyperlipidemia, hypertension, and hypothyroidism. FAMILY HISTORY: Not pertinent to her present illness. 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 . No family at the bedside presently. Four children. REVIEW OF SYSTEMS: 14-point review otherwise negative. PHYSICAL EXAMINATION: GENERAL: This is an elderly female who appears her actual age. No acute distress. VITAL SIGNS: Afebrile since arrival, 61, 16, 153/57, 98% on room air. SKIN: No generalized rashes. Warm and dry. EENT: The conjunctivae are normal. Mildly dry mucous membranes. Teeth in good repair. There is no paranasal sinus erythema, edema, or tenderness. NECK: No masses, meningismus, or thyromegaly. LUNGS: Clear to auscultation and percussion. CHEST: No hematoma, no erythema of the pacemaker pocket. CARDIAC: Regular rate and rhythm. No murmur, gallop, or rub. ABDOMEN: Soft, nontender, nondistended. Normal bowel sounds. No organomegaly. No masses. EXTREMITIES: She has some abrasions over the anterior lower shins, but no evidence of cellulitis. She has 2+ pitting edema, both feet. MUSCULOSKELETAL: Right hip incision is clean, dry, intact. No erythema, tenderness, abnormal contour, warmth, or odor. LABORATORY DATA: Blood cultures from last evening are in process. Wound culture also co
[2020-04-21] MEDS: hydrALAZINE HCL 25 MG TABLET 75 MG PO ×2 (15:29→18:08)
--- NOTE | 2020-04-21 15:58 | PM.IMPN ---
Progress Note: A&P Assessment and Plan (1) Abdominal pain: Qualifiers: Abdominal location: generalized Qualified Code(s): R10.84 - Generalized abdominal pain Code(s): R10.9 - Unspecified abdominal pain Status: Acute Assessment and Plan: She reported abdominal discomfort. CT abd/pelvis demonstrated dilated small bowel consistent with ileus versus obstruction. She was made NPO overnight and NG tube was recommended but she refused NG tube. General surgery is following. Diet was advanced to clear liquids per general surgery which she tolerated well. Plan for continued conservative care. Appreciate general surgery input. (2) Leukocytosis: Code(s): D72.829 - Elevated white blood cell count, unspecified Status: Acute Assessment and Plan: Improving. Pt has hx of polycythemia vera. UA without significant abnormality. Her right hip has no evidence of acute infection. Blood cultures were obtained and are pending. She is afebrile. She was seen by infectious disease who recommends to continue ampicillin and minocycline for 13 days. Infectious disease is greatly appreciated. Monitor CBC daily. Await final cultures. (3) Pitting edema: Code(s): R60.9 - Edema, unspecified Status: Acute Assessment and Plan: Will repeat venous doppler US to r/o DVT. Continue wound care. Recommend leg elevation and compression. She appears fluid positive and notes weight gain and leg swelling. Check BNP and CXR given leg edema. Request echo results from [facility]. Continue furosemide 40mg PO QD and consider titrating based on further workup. Monitor daily weight and strict intake and output. (4) Renal insufficiency: Code(s): N28.9 - Disorder of kidney and ureter, unspecified Status: Acute Assessment and Plan: Likely multifactorial and felt that vancomycin may be a contributing factor. She was seen by Dr. Jordan. Cr seems to be improving as Cr was 2.2 on prior notes. Continue to monitor. Renally dose medications and avoid nephrotoxins. Continue to monitor. (5) DM2 (diabetes mellitus, type 2): Code(s): E11.9 - Type 2 diabetes mellitus without complications Status: Chronic Assessment and Plan: HbA1c 4.9 04/17. Blood sugars are at target and she is not on any hypoglycemics at this time. (6) Hypothyroidism: Code(s): E03.9 - Hypothyroidism, unspecified Status: Chronic Assessment and Plan: Continue levothyroxine. (7) Status post right hip replacement: Code(s): Z96.641 - Presence of right artificial hip joint Status: Acute Assessment and Plan: Post-op course was complicated by hematoma with infection requiring debridement during most recent hospital stay at [facility]. She is progressing well from a PT/OT standpoint in [facility]. There is no evidence of acute infection at this time. Infectious disease is following and recommendations are appreciated. Continue ampicillin and minocycline for 13 additional days. (8) Polycythemia vera: Code(s): D45 - Polycythemia vera Status: Acute Assessment and Plan: She will need to follow-up with hematology outpatient. This is likely contributing to leukocytosis. (9) Gout: Code(s): M10.9 - Gout, unspecified Status: Chronic Assessment and Plan: No acute issues. Continue allopurinol. (10) Hypertension: Code(s): I10 - Essential (primary) hypertension Status: Chronic Assessment and Plan: Blood pressures were reviewed and are elevated. Continue hydralazine, atenolol, amlodipine, and furosemide. She was NPO today due to concern for possible SBO so antihypertensives were held. She was in pain yesterday. Plan for medication adjustments as indicated if BP dose not improve. (11) Hyperlipidemia: Code(s): E78.5 - Hyperlipidemia, unspecified Status: Chronic Assessment
[2020-04-21] MEDS: POTASSIUM CHLORIDE 20 MEQ TABLET 40 MEQ PO (18:07)
[2020-04-21] MEDS: POTASSIUM CHLORIDE 20 MEQ TABLET PO (18:07)
[2020-04-21 21:06] VITALS: PULSE 64
[2020-04-21] MEDS: POLYSACCHARIDE IRON COMPLEX 150 MG CAPSULE PO (21:06)
[2020-04-21] MEDS: QUEtiapine FUMARATE 25 MG TABLET 50 MG PO (21:06)
[2020-04-21] MEDS: atenoloL 50 MG TABLET 100 MG PO (21:06)
[2020-04-21] MEDS: SIMVASTATIN 20 MG TABLET PO (21:07)
[2020-04-21] MEDS: ASPIRIN 81 MG ENTERIC TABLET PO (21:07)
[2020-04-21] MEDS: SENNA/DOCUSATE SODIUM TABLET 1 TAB PO (21:07)
[2020-04-21] MEDS: BISACODYL 10 MG SUPPOSITORY RECTAL (21:08)
[2020-04-21 22:00] VITALS: BP 141/60; PULSE 62; RESP 16; TEMP 36.1; O2SAT 100
[2020-04-22] MEDS: HEPARIN SODIUM 5,000 UNITS/ML VIAL 5000 UNITS SUB-Q ×3 (05:44→21:39)
[2020-04-22] MEDS: MINOCYCLINE HCL 50 MG CAPSULE 100 MG PO ×2 (05:44→17:36)
[2020-04-22] MEDS: LEVOTHYROXINE SODIUM 75 MCG TABLET PO (05:44)
[2020-04-22] MEDS: AMPICILLIN TRIHYDRATE 500 MG CAPSULE PO ×3 (05:44→21:39)
[2020-04-22 06:00] VITALS: BP 149/56; PULSE 59; RESP 16; TEMP 36.2; O2SAT 99
[2020-04-22 06:51] LABS: Glucose Point of Care 108 (65-105)
[2020-04-22 07:22] LABS: Basophils Absolute Auto 0.1 K/mm3 (0.0-0.1); Basophils Percent Auto 0.9 % (0.2-1.2); Eosinophils Absolute Auto 0.2 K/mm3 (0-0.3); Eosinophils Percent Auto 1.1 % (0-4.4); Hematocrit 29.6 % (37.0-47.0); Hemoglobin 9.3 g/dL (12.0-15.0); Immature Granulocyte Absolute 0.16 K/mm3 (0.00-0.031); Immature Granulocyte Percent A 1.1 % (0-0.5); Lymphocytes Absolute Auto 0.96 K/mm3 (0.9-3.2); Lymphocytes Percent Auto 6.9 % (18.3-44.2); Mean Corpuscular HGB Conc 31.4 g/dl (32-36); Mean Corpuscular Hemoglobin 29.2 pg (26-34); Mean Corpuscular Volume 93.1 fl (80-100); Mean Platelet Volume 10.8 fl (7.4-10.4); Monocytes Absolute Auto 0.7 K/mm3 (0.1-0.6); Monocytes Percent Auto 5.2 % (2.6-8.5); Neutrophils Absolute Auto 11.8 K/mm3 (1.3-6.7); Neutrophils Percent Auto 84.8 % (45.5-73.1); Platelet Count Result 455 k/mm3 (150-375); Red Blood Count 3.18 M/mm3 (4.2-5.4); Red Cell Distribution Width 17.2 % (11.5-14.5); White Blood Count 13.9 K/mm3 (4.5-10.0)
[2020-04-22 07:40] LABS: Alanine Aminotransferase 6 U/L (4-35); Albumin Level 2.5 g/dL (3.5-5.1); Alkaline Phosphatase 61 U/L (38-126); Anion Gap 6 mmol/L (8-16); Aspartate Amino Transferase 18 U/L (14-36); Bilirubin,Total 0.1 mg/dL (0.2-1.3); Blood Urea Nitrogen 30 mg/dL (7-17); Calcium 7.9 mg/dL (8.4-10.2); Carbon Dioxide 28 mmol/L (22-30); Chloride 104 mmol/L (98-107); Estimated CRCL calculation 23 ml/min; Estimated Glomerular Filt Rate 33; Glucose 102 mg/dL (65-105); Magnesium 1.5 mg/dL (1.6-2.3); Potassium 3.3 mmol/L (3.4-5.0); Sodium 138 mmol/L (137-145)
[2020-04-22 07:44] LABS: NT Pro B Type Natriuretic Pept 2790 PG/ML (5-100)
[2020-04-22] MEDS: SILVERGEL (ELTA) 45 ML 1 APPLIC TOPICAL (09:00)
--- NOTE | 2020-04-22 09:18 | PM.PNGS ---
Progress Note: A&P Assessment and Plan (1) Abdominal pain: Qualifiers: Abdominal location: generalized Qualified Code(s): R10.84 - Generalized abdominal pain Code(s): R10.9 - Unspecified abdominal pain Status: Acute Assessment and Plan: No signs of ileus or obstruction. Continue stimulating bowels with MiraLax and Senna. Advance diet as tolerated. Will sign off. (2) Abnormal CT of the abdomen: Code(s): R93.5 - Abnormal findings on diagnostic imaging of other abdominal regions, including retroperitoneum Status: Acute Subjective Subjective Date/Time Seen: 04/22/20 09:18 Tolerating clears. Bowels moving. Denies bloating or nausea. Exam GI: Inspection: non-distended GI Palp: Yes Soft to palpation, No Tenderness to palpation present (GI) and No Guarding due to palpation present (GI) Percussion: Yes normal to percussion Auscultation: normal bowel sounds Objective Data Vital Signs Vital Signs: Vital Signs - 24 hr 04/21/20 12:41 04/21/20 14:00 04/21/20 21:06 Temperature 36.1 C L Pulse Rate 61 64 64 Respiratory Rate 18 Blood Pressure 146/70 H Pulse Oximetry 93 04/21/20 22:00 04/22/20 06:00 Temperature 36.1 C L 36.2 C L Pulse Rate 62 59 L Respiratory Rate 16 16 Blood Pressure 141/60 H 149/56 H Pulse Oximetry 100 99 Intake/Output Intake/Output: Intake & Output 04/19/20 04/20/20 04/21/20 04/22/20 23:59 23:59 23:59 23:59 Intake Total 240 330 120 560 Balance 240 330 120 560 Meds/Results Medications: Active Medications Generic Name Dose Route Start Last Admin Trade Name Freq PRN Reason Stop Dose Admin Acetaminophen 650 mg 04/16/20 21:00 Tylenol Tablet PO Q4H PRN Pain (Scale Score 1-3) Albuterol 2.5 mg 04/19/20 13:13 Albuterol Sulf Neb 2.5mg/0.5ml INHALATION TIDRT PRN Shortness Of Breath Or Wheezing Allopurinol 100 mg 04/17/20 09:00 04/21/20 12:41 Zyloprim PO Not Given DAILY [facility] Amlodipine Besylate 10 mg 04/17/20 09:00 04/21/20 12:41 Norvasc PO Not Given DAILY [facility] Ampicillin 500 mg 04/16/20 22:00 04/22/20 05:44 Ampicillin Trihydrate Capsule PO 05/05/20 23:59 500 mg Q8HR [facility] Administration Aspirin 81 mg 04/16/20 21:00 04/21/20 21:07 Aspirin Ec PO 81 mg HS [facility] Administration Atenolol 100 mg 04/16/20 21:00 04/21/20 21:06 Tenormin PO 100 mg Q12HR [facility] Administration Furosemide 40 mg 04/17/20 09:00 04/21/20 12:41 Lasix Tablet PO Not Given DAILY [facility] Heparin Sodium (Porcine) 5,000 units 04/16/20 22:00 04/22/20 05:44 Heparin Sodium SUB-Q 5,000 units Q8HR [facility] Administration Hydralazine HCl 75 mg 04/17/20 09:00 04/21/20 18:08 Apresoline Tablet PO 75 mg TID [facility] Administration Magnesium Sulfate/Dextrose 3 gm in 100 mls @ 100 mls/hr 04/22/20 09:15 Magnesium Sulfate 3gm/[id number] IVPB 04/22/20 10:14 ONCE ONE Ipratropium [place] 0.5 mg 04/19/20 13:13 Atrovent Neb INHALATION TIDRT PRN Shortness Of Breath Or Wheezing Levothyroxine Sodium 75 mcg 04/17/20 06:30 04/22/20 05:44 Synthroid PO 75 mcg DAILY@0630 [facility] Administration Miconazole Nitrate 1 applic 04/17/20 09:45 04/21/20 18:09 Aloe [place] TOPICAL 1 applic BID [facility] Administration Minocycline HCl 100 mg 04/17/20 06:00 04/22/20 05:44 Minocycline Hcl PO 05/05/20 23:59 100 mg Q12H [facility] Administration Polyethylene Glycol 17 gm 04/22/20 09:00 Miralax PO QAM [facility] Polysaccharide Iron Complex 150 mg 04/16/20 21:00 04/21/20 21:06 Niferex-150 PO 150 mg Q12HR [facility] Administration Potassium Chloride 20 meq 04/22/20 08:00 Kcl Tablet PO DAILY@0800 [facility] Potassium Chloride 40 meq 04/22/20 10:30 Kcl Tablet PO 04/22/20 10:31 ONCE ONE Quetiapine Fumarate 50 mg 04/16/20 21:00 04/21/20 21:06 Seroquel PO 50 mg HS [facility] Administration Senna/Docusate Sodium 1 tab 04/16/20 21:00 03/26
[2020-04-22 10:58] VITALS: PULSE 72
[2020-04-22] MEDS: hydrALAZINE HCL 25 MG TABLET 75 MG PO ×3 (10:58→17:02)
[2020-04-22] MEDS: atenoloL 50 MG TABLET 100 MG PO ×2 (10:58→20:14)
[2020-04-22] MEDS: POLYSACCHARIDE IRON COMPLEX 150 MG CAPSULE PO ×2 (10:58→20:13)
[2020-04-22] MEDS: FUROSEMIDE 40 MG TABLET PO ×2 (10:58→17:01)
[2020-04-22] MEDS: amLODIPine BESYLATE 5 MG TABLET 10 MG PO (10:58)
[2020-04-22] MEDS: polyethylene glycoL 3350 17 GM POWD.PACK PO (10:59)
[2020-04-22] MEDS: allopurinoL 100 MG TABLET PO (10:59)
[2020-04-22 14:00] VITALS: BP 151/62; PULSE 68; RESP 18; TEMP 35.8; O2SAT 97
--- NOTE | 2020-04-22 14:03 | WPDNEURORHBP ---
Subjective Date/time seen: 04/22/20 14:03 Interval history: this 84-year-old woman is here is status post wound infection after having had the right hip surgery she had several issues in the past couple of days which are basically resolving hospitalist were involved it seems like the leukocytosis has gotten much better and it might have been lab better when they did find a leukocyte count of 35,000 she is already on antibiotic and doing fairly well denies any headache nausea vomiting chest pain shortness of breath fever chills sore throat Review of Systems Review of Systems: All systems reviewed & are unremarkable except as noted in HPI and below Functional Status Ambulation Ability Ability to Ambulate 10 Feet: Standby Assistance Ability to Ambulate 50 Feet With 2 Turns: Standby Assistance Ability to Ambulate 150 Feet: Standby Assistance Ambulation Assistive Devices: Walker, Wheeled Transfers Ability Ability to Transfer In/Out of Chair: Standby Assistance Exam Const: General: comfortable and no acute distress HENMT: General nose exam: Normal nares present Mouth: Yes moist mucous membranes Eyes: General: appearance normal, both eyes and all related structures Neck: Neck: supple and no JVD Resp: Effort & Inspection: normal respiratory effort Auscultation: clear to auscultation bilaterally Cardio: Rate: regular rate Rhythm: regular rhythm GI: GI Palp: Yes Soft to palpation Auscultation: normal bowel sounds Skin: General skin exam: normal color and no rashes or lesions noted Neuro: Other: patient is awake alert well oriented follows all commands Extrem: General: normal to inspection Other: the incision on the right hip is clean little discharge no sign of infection Psych: Mental Status: mental status grossly normal Objective Data Vital Signs Vital Signs: Vital Signs - 24 hr 04/21/20 21:06 04/21/20 22:00 04/22/20 06:00 Temperature 36.1 C L 36.2 C L Pulse Rate 64 62 59 L Respiratory Rate 16 16 Blood Pressure 141/60 H 149/56 H Pulse Oximetry 100 99 04/22/20 10:58 Temperature Pulse Rate 72 Respiratory Rate Blood Pressure Pulse Oximetry Intake/Output Intake/Output: Intake & Output 04/19/20 04/20/20 04/21/20 04/22/20 23:59 23:59 23:59 23:59 Intake Total 240 330 120 560 Balance 240 330 120 560 Meds/Results Medications: Active Medications Generic Name Dose Route Start Last Admin Trade Name Freq PRN Reason Stop Dose Admin Acetaminophen 650 mg 04/16/20 21:00 Tylenol Tablet PO Q4H PRN Pain (Scale Score 1-3) Albuterol 2.5 mg 04/19/20 13:13 Albuterol Sulf Neb 2.5mg/0.5ml INHALATION TIDRT PRN Shortness Of Breath Or Wheezing Allopurinol 100 mg 04/17/20 09:00 04/22/20 10:59 Zyloprim PO 100 mg DAILY [facility] Administration Amlodipine Besylate 10 mg 04/17/20 09:00 04/22/20 10:58 Norvasc PO 10 mg DAILY [facility] Administration Ampicillin 500 mg 04/16/20 22:00 04/22/20 05:44 Ampicillin Trihydrate Capsule PO 05/05/20 23:59 500 mg Q8HR [facility] Administration Aspirin 81 mg 04/16/20 21:00 04/21/20 21:07 Aspirin Ec PO 81 mg HS [facility] Administration Atenolol 100 mg 04/16/20 21:00 04/22/20 10:58 Tenormin PO 100 mg Q12HR [facility] Administration Furosemide 40 mg 04/17/20 09:00 04/22/20 10:58 Lasix Tablet PO 40 mg DAILY [facility] Administration Heparin Sodium (Porcine) 5,000 units 04/16/20 22:00 04/22/20 05:44 Heparin Sodium SUB-Q 5,000 units Q8HR [facility] Administration Hydralazine HCl 75 mg 04/17/20 09:00 04/22/20 10:58 Apresoline Tablet PO 75 mg TID [facility] Administration Ipratropium [place] 0.5 mg 04/19/20 13:13 Atrovent Neb INHALATION TIDRT PRN Shortness Of Breath Or Wheezing Levothyroxine Sodium 75 mcg 04/17/20 06:30 04/22/20 05:44 Synthroid PO 75 mcg DAILY@0630 [facility] Administration Miconazole Nitrate 1 applic 04/17/20 09:45 04/22/20 10:59 Aloe [place] TOPICAL 1
[2020-04-22] MEDS: MAGNESIUM SULFATE 3GM/D5W100ML 3 GM/100 ML BAG IVPB (15:13)
--- NOTE | 2020-04-22 15:47 | PM.IMPN ---
Progress Note: A&P Assessment and Plan (1) Abdominal pain: Qualifiers: Abdominal location: generalized Qualified Code(s): R10.84 - Generalized abdominal pain Code(s): R10.9 - Unspecified abdominal pain Status: Acute Assessment and Plan: She reported abdominal discomfort. CT abd/pelvis demonstrated dilated small bowel consistent with ileus versus obstruction. She was made NPO overnight and NG tube was recommended but she refused NG tube. General surgery evaluated the patient and felt her symptoms were due to ileus caused by possible constipation instead of SBO since she had not abdominal surgical history. She had a bowel movement this morning and denies any N/V/abd pain. She was on clear liquid diet and tolerated well and was advanced to a regular diet for dinner tonight by Surgery. Continue conservative management. (2) Leukocytosis: Code(s): D72.829 - Elevated white blood cell count, unspecified Status: Acute Assessment and Plan: Improving. Pt has hx of polycythemia vera. UA without significant abnormality. Her right hip has no evidence of acute infection. Blood cultures were obtained and showing no growth at this time. Wound cultures show no growth. She is afebrile. She was seen by infectious disease who recommends to continue ampicillin and minocycline until 05/05/2020. Infectious disease is greatly appreciated and recommended following up with Dr. Pérez after discharge. Monitor CBC daily. Await final cultures. (3) Pitting edema: Code(s): R60.9 - Edema, unspecified Status: Acute Assessment and Plan: Venous doppler US was negative for DVT. Continue wound care. Recommend leg elevation and compression. Her BNP was elevated at 2700 but I am unsure what her baseline is for age. She normally has some edema but it is more severe during this hospitalization. She states it is improved from yesterday. I called her primary care provider and she does have a history of CKD and her creatinine can range from 1-2. At this time I will increase her home Lasix to p.o. 40 mg twice daily and potassium supplementation. Will continue monitoring the improvement of her leg swelling over the next few days. Request echo results from [facility]. (4) Renal insufficiency: Code(s): N28.9 - Disorder of kidney and ureter, unspecified Status: Acute Assessment and Plan: Acute on chronic kidney injury. I talked to patient's PCP. Likely multifactorial and felt that vancomycin may be a contributing factor. Cr seems to be improving as Cr was 2.2 on prior notes. Creatinine this morning was 1.5. Will continue monitoring with increase of Lasix I am prescribing to get the fluid off her legs. Continue to monitor. Renally dose medications and avoid nephrotoxins. Continue to monitor. (5) DM2 (diabetes mellitus, type 2): Code(s): E11.9 - Type 2 diabetes mellitus without complications Status: Chronic Assessment and Plan: HbA1c 4.9 04/17. Blood sugars are at target and she is not on any hypoglycemics at this time. (6) Hypothyroidism: Code(s): E03.9 - Hypothyroidism, unspecified Status: Chronic Assessment and Plan: Continue levothyroxine. (7) Status post right hip replacement: Code(s): Z96.641 - Presence of right artificial hip joint Status: Acute Assessment and Plan: Post-op course was complicated by hematoma with infection requiring debridement during most recent hospital stay at [facility]. She is progressing well from a PT/OT standpoint in [facility]. There is no evidence of acute infection at this time. Infectious disease is following and recommendations are appreciated. Continue ampicillin and minocycline until 05/05/2020. (8) Polycythemia vera: Code(s): D45 - Polycythemia vera Status: Acute Assessment and Plan: She will need to follow-up with hematology outpa
[2020-04-22] MEDS: POTASSIUM CHLORIDE 20 MEQ TABLET 40 MEQ PO (17:03)
[2020-04-22] MEDS: POTASSIUM CHLORIDE 20 MEQ TABLET.ER PO (17:34)
[2020-04-22] MEDS: QUEtiapine FUMARATE 25 MG TABLET 50 MG PO (20:13)
[2020-04-22] MEDS: SENNA/DOCUSATE SODIUM TABLET 1 TAB PO (20:13)
[2020-04-22] MEDS: ASPIRIN 81 MG ENTERIC TABLET PO (20:13)
[2020-04-22] MEDS: SIMVASTATIN 20 MG TABLET PO (20:13)
[2020-04-22 20:14] VITALS: PULSE 68
[2020-04-22] MEDS: TEMAZEPAM (*CRX) 15 MG CAPSULE PO (20:17)
[2020-04-22 22:00] VITALS: BP 133/61; PULSE 64; RESP 16; TEMP 36.3; O2SAT 98
[2020-04-23] MEDS: HEPARIN SODIUM 5,000 UNITS/ML VIAL 5000 UNITS SUB-Q ×2 (05:57→14:37)
[2020-04-23] MEDS: AMPICILLIN TRIHYDRATE 500 MG CAPSULE PO ×3 (05:57→20:05)
[2020-04-23] MEDS: MINOCYCLINE HCL 50 MG CAPSULE 100 MG PO ×2 (05:57→18:39)
[2020-04-23 06:00] VITALS: BP 158/68; PULSE 63; RESP 18; TEMP 36.3; O2SAT 98
[2020-04-23 06:32] LABS: Basophils Absolute Auto 0.1 K/mm3 (0.0-0.1); Basophils Percent Auto 0.8 % (0.2-1.2); Eosinophils Absolute Auto 0.3 K/mm3 (0-0.3); Eosinophils Percent Auto 2.1 % (0-4.4); Hematocrit 30.2 % (37.0-47.0); Hemoglobin 9.1 g/dL (12.0-15.0); Immature Granulocyte Absolute 0.11 K/mm3 (0.00-0.031); Immature Granulocyte Percent A 0.9 % (0-0.5); Lymphocytes Percent Auto 8.2 % (18.3-44.2); Mean Corpuscular HGB Conc 30.1 g/dl (32-36); Mean Corpuscular Hemoglobin 28.1 pg (26-34); Mean Corpuscular Volume 93.2 fl (80-100); Monocytes Absolute Auto 0.7 K/mm3 (0.1-0.6); Monocytes Percent Auto 5.7 % (2.6-8.5); Neutrophils Absolute Auto 10.1 K/mm3 (1.3-6.7); Neutrophils Percent Auto 82.3 % (45.5-73.1); Platelet Count Result 495 k/mm3 (150-375); Red Blood Count 3.24 M/mm3 (4.2-5.4); Red Cell Distribution Width 17.2 % (11.5-14.5); White Blood Count 12.2 K/mm3 (4.5-10.0)
[2020-04-23 06:40] LABS: Anion Gap 8 mmol/L (8-16); Blood Urea Nitrogen 31 mg/dL (7-17); Calcium 8.1 mg/dL (8.4-10.2); Carbon Dioxide 26 mmol/L (22-30); Chloride 104 mmol/L (98-107); Estimated CRCL calculation 21 ml/min; Estimated Glomerular Filt Rate 29; Glucose 93 mg/dL (65-105); Magnesium 2.1 mg/dL (1.6-2.3); Potassium 3.6 mmol/L (3.4-5.0); Sodium 138 mmol/L (137-145)
[2020-04-23] MEDS: hydrALAZINE HCL 25 MG TABLET 75 MG PO ×3 (09:46→18:39)
[2020-04-23 09:47] VITALS: PULSE 62
[2020-04-23] MEDS: POTASSIUM CHLORIDE 20 MEQ TABLET.ER PO ×2 (09:47→18:39)
[2020-04-23] MEDS: atenoloL 50 MG TABLET 100 MG PO ×2 (09:47→20:04)
[2020-04-23] MEDS: polyethylene glycoL 3350 17 GM POWD.PACK PO (09:47)
[2020-04-23] MEDS: amLODIPine BESYLATE 5 MG TABLET 10 MG PO (09:47)
[2020-04-23] MEDS: allopurinoL 100 MG TABLET PO (09:47)
[2020-04-23] MEDS: POLYSACCHARIDE IRON COMPLEX 150 MG CAPSULE PO ×2 (09:48→20:04)
[2020-04-23] MEDS: FUROSEMIDE 40 MG TABLET PO ×2 (09:48→18:38)
[2020-04-23] MEDS: LEVOTHYROXINE SODIUM 75 MCG TABLET PO (09:48)
[2020-04-23] MEDS: SILVERGEL (ELTA) 45 ML 1 APPLIC TOPICAL ×2 (09:49→18:38)
[2020-04-23 11:00] VITALS: PULSE 62; RESP 18; O2SAT 98
--- NOTE | 2020-04-23 11:25 | PM.IMPN ---
Progress Note: A&P Assessment and Plan (1) Abdominal pain: Qualifiers: Abdominal location: generalized Qualified Code(s): R10.84 - Generalized abdominal pain Code(s): R10.9 - Unspecified abdominal pain Status: Acute Assessment and Plan: She reported abdominal discomfort. CT abd/pelvis demonstrated dilated small bowel consistent with ileus versus obstruction. She was made NPO overnight and NG tube was recommended but she refused NG tube. General surgery evaluated the patient and felt her symptoms were due to ileus caused by possible constipation instead of SBO since she had not abdominal surgical history. She had a bowel movement this morning and denies any N/V/abd pain. She tolerated a regular diet without any issues. Will continue monitoring in conservative management. (2) Leukocytosis: Code(s): D72.829 - Elevated white blood cell count, unspecified Status: Acute Assessment and Plan: Improving. Pt has hx of polycythemia vera. UA without significant abnormality. Her right hip has no evidence of acute infection. Blood cultures were obtained and showing no growth at this time. Wound cultures show no growth. She is afebrile. She was seen by infectious disease who recommends to continue ampicillin and minocycline until 05/05/2020. Infectious disease is greatly appreciated and recommended following up with Dr. Pérez after discharge. Monitor CBC daily. Await final cultures. (3) Pitting edema: Code(s): R60.9 - Edema, unspecified Status: Acute Assessment and Plan: Venous doppler US was negative for DVT. Continue wound care. Recommend leg elevation and compression. Her BNP was elevated at 2700 but I am unsure what her baseline is for age. She normally has some edema but it is more severe during this hospitalization. She states it is improved from yesterday. I called her primary care provider and she does have a history of CKD and her creatinine can range from 1-2.0. At this time I will increase her home Lasix to p.o. 40 mg twice daily and potassium supplementation. Will continue monitoring the improvement of her leg swelling over the next few days. James wraps will be applied daily. Request echo results from [facility]. (4) Renal insufficiency: Code(s): N28.9 - Disorder of kidney and ureter, unspecified Status: Acute Assessment and Plan: Acute on chronic kidney injury. I talked to patient's PCP. Likely multifactorial and felt that vancomycin may be a contributing factor. Cr seems to be improving as Cr was 2.2 on prior notes. Creatinine this morning was 1.7. Will continue monitoring with increase of Lasix I am prescribing to get the fluid off her legs. Continue to monitor. Renally dose medications and avoid nephrotoxins. Continue to monitor. (5) DM2 (diabetes mellitus, type 2): Code(s): E11.9 - Type 2 diabetes mellitus without complications Status: Chronic Assessment and Plan: HbA1c 4.9 04/17. Blood sugars are at target and she is not on any hypoglycemics at this time. (6) Hypothyroidism: Code(s): E03.9 - Hypothyroidism, unspecified Status: Chronic Assessment and Plan: Continue levothyroxine. (7) Status post right hip replacement: Code(s): Z96.641 - Presence of right artificial hip joint Status: Acute Assessment and Plan: Post-op course was complicated by hematoma with infection requiring debridement during most recent hospital stay at [facility]. She is progressing well from a PT/OT standpoint in [facility]. There is no evidence of acute infection at this time. Infectious disease is following and recommendations are appreciated. Continue ampicillin and minocycline until 05/05/2020. (8) Polycythemia vera: Code(s): D45 - Polycythemia vera Status: Acute Assessment and Plan: She will need to follow-up with hematology outpatient. Thi
[2020-04-23 14:00] VITALS: BP 141/66; PULSE 67; RESP 18; TEMP 36.1; O2SAT 90
--- NOTE | 2020-04-23 15:49 | PCPTNOTE ---
Occupational Therapist spoke with Dr. Fountain regarding patient's hip precautions. Per Dr. Fountain discharge all hip precautions and movement restrictions at this time.
--- NOTE | 2020-04-23 15:49 | WPDNEURORHBP ---
Subjective Date/time seen: 04/23/20 15:49 Interval history: this 84-year-old woman is here is status post right hip surgery which was infected later on and was debrided and she is doing fairly decent denies any headache nausea vomiting fever chills or sore throat the hospitalist is following her and adjusting the medication for her lower extremity edema She is feeling good denies any headache nausea vomiting chest pain shortness of breath lower extremity edema is addressed by the hospitalist her care needing is however ring around about the same Review of Systems Review of Systems: All systems reviewed & are unremarkable except as noted in HPI and below Functional Status Ambulation Ability Ability to Ambulate 10 Feet: Standby Assistance Ability to Ambulate 50 Feet With 2 Turns: Standby Assistance Ability to Ambulate 150 Feet: Standby Assistance Ambulation Assistive Devices: Walker, Wheeled Transfers Ability Ability to Transfer In/Out of Chair: Independent Exam Const: General: comfortable and no acute distress HENMT: General nose exam: Normal nares present Mouth: Yes moist mucous membranes Eyes: General: appearance normal, both eyes and all related structures Neck: Neck: supple and no JVD Resp: Effort & Inspection: normal respiratory effort Auscultation: clear to auscultation bilaterally Cardio: Rate: regular rate Rhythm: regular rhythm GI: GI Palp: Yes Soft to palpation Auscultation: normal bowel sounds Skin: General skin exam: normal color and no rashes or lesions noted Neuro: Other: patient is awake alert well oriented weakness is improving and continues to improve overall with the therapy Extrem: Other: bilateral lower extremity edema Psych: Mental Status: mental status grossly normal Objective Data Vital Signs Vital Signs: Vital Signs - 24 hr 04/22/20 20:14 04/22/20 22:00 04/23/20 06:00 Temperature 36.3 C L 36.3 C L Pulse Rate 68 64 63 Respiratory Rate 16 18 Blood Pressure 133/61 158/68 H Pulse Oximetry 98 98 04/23/20 09:47 Temperature Pulse Rate 62 Respiratory Rate Blood Pressure Pulse Oximetry Intake/Output Intake/Output: Intake & Output 04/20/20 04/21/20 04/22/20 04/23/20 23:59 23:59 23:59 23:59 Intake Total 888 812 7860 360 Balance 381 526 2315 360 Meds/Results Medications: Active Medications Generic Name Dose Route Start Last Admin Trade Name Freq PRN Reason Stop Dose Admin Acetaminophen 650 mg 04/16/20 21:00 Tylenol Tablet PO Q4H PRN Pain (Scale Score 1-3) Albuterol 2.5 mg 04/19/20 13:13 Albuterol Sulf Neb 2.5mg/0.5ml INHALATION TIDRT PRN Shortness Of Breath Or Wheezing Allopurinol 100 mg 04/17/20 09:00 04/23/20 09:47 Zyloprim PO 100 mg DAILY [facility] Administration Amlodipine Besylate 10 mg 04/17/20 09:00 04/23/20 09:47 Norvasc PO 10 mg DAILY [facility] Administration Ampicillin 500 mg 04/16/20 22:00 04/23/20 14:37 Ampicillin Trihydrate Capsule PO 05/05/20 23:59 500 mg Q8HR [facility] Administration Aspirin 81 mg 04/16/20 21:00 04/22/20 20:13 Aspirin Ec PO 81 mg HS [facility] Administration Atenolol 100 mg 04/16/20 21:00 04/23/20 09:47 Tenormin PO 100 mg Q12HR [facility] Administration Furosemide 40 mg 04/22/20 17:00 04/23/20 09:48 Lasix Tablet PO 40 mg BID [facility] Administration Hydralazine HCl 75 mg 04/17/20 09:00 04/23/20 14:37 Apresoline Tablet PO 75 mg TID [facility] Administration Ipratropium [place] 0.5 mg 04/19/20 13:13 Atrovent Neb INHALATION TIDRT PRN Shortness Of Breath Or Wheezing Levothyroxine Sodium 75 mcg 04/17/20 06:30 04/23/20 09:48 Synthroid PO 75 mcg DAILY@0630 [facility] Administration Miconazole Nitrate 1 applic 04/17/20 09:45 04/23/20 09:49 Aloe [place] TOPICAL 1 applic BID [facility] Administration Minocycline HCl 100 mg 04/17/20 06:00 04/23/20 05:57 Minocycline Hcl PO 05/05/20 23:59 100 mg Q12H [facility] Administration
[2020-04-23] MEDS: SENNA/DOCUSATE SODIUM TABLET 1 TAB PO (20:05)
[2020-04-23] MEDS: SIMVASTATIN 20 MG TABLET PO (20:05)
[2020-04-23] MEDS: QUEtiapine FUMARATE 25 MG TABLET 50 MG PO (20:05)
[2020-04-23] MEDS: ASPIRIN 81 MG ENTERIC TABLET PO (20:05)
[2020-04-23 21:39] VITALS: BP 142/55; PULSE 69; RESP 18; TEMP 36.1; O2SAT 99
[2020-04-24 05:02] VITALS: BP 148/62; PULSE 64; RESP 18; TEMP 36.1; O2SAT 98
[2020-04-24 05:46] LABS: Basophils Absolute Auto 0.1 K/mm3 (0.0-0.1); Basophils Percent Auto 0.9 % (0.2-1.2); Eosinophils Absolute Auto 0.2 K/mm3 (0-0.3); Eosinophils Percent Auto 1.9 % (0-4.4); Hematocrit 29.7 % (37.0-47.0); Hemoglobin 9.4 g/dL (12.0-15.0); Immature Granulocyte Absolute 0.13 K/mm3 (0.00-0.031); Immature Granulocyte Percent A 1.1 % (0-0.5); Lymphocytes Absolute Auto 1.08 K/mm3 (0.9-3.2); Lymphocytes Percent Auto 8.8 % (18.3-44.2); Mean Corpuscular HGB Conc 31.6 g/dl (32-36); Mean Corpuscular Hemoglobin 28.9 pg (26-34); Mean Corpuscular Volume 91.4 fl (80-100); Monocytes Absolute Auto 0.6 K/mm3 (0.1-0.6); Monocytes Percent Auto 5.2 % (2.6-8.5); Neutrophils Percent Auto 82.1 % (45.5-73.1); Nucleated Red Blood Cells Perc 0.2 % (0.0-0.2); Platelet Count Result 516 k/mm3 (150-375); Red Blood Count 3.25 M/mm3 (4.2-5.4); Red Cell Distribution Width 17.5 % (11.5-14.5); White Blood Count 12.2 K/mm3 (4.5-10.0)
[2020-04-24 06:02] LABS: Anion Gap 8 mmol/L (8-16); Blood Urea Nitrogen 33 mg/dL (7-17); Calcium 8.2 mg/dL (8.4-10.2); Carbon Dioxide 28 mmol/L (22-30); Chloride 100 mmol/L (98-107); Estimated CRCL calculation 22 ml/min; Estimated Glomerular Filt Rate 36; Glucose 93 mg/dL (65-105); Magnesium 1.9 mg/dL (1.6-2.3); Potassium 3.8 mmol/L (3.4-5.0); Sodium 136 mmol/L (137-145)
[2020-04-24] MEDS: LEVOTHYROXINE SODIUM 75 MCG TABLET PO (06:15)
[2020-04-24] MEDS: MINOCYCLINE HCL 50 MG CAPSULE 100 MG PO ×2 (06:15→17:34)
[2020-04-24] MEDS: AMPICILLIN TRIHYDRATE 500 MG CAPSULE PO ×3 (06:15→20:32)
[2020-04-24 09:17] VITALS: PULSE 64
[2020-04-24] MEDS: atenoloL 50 MG TABLET 100 MG PO ×2 (09:17→20:32)
[2020-04-24] MEDS: FUROSEMIDE 40 MG TABLET PO ×2 (09:17→17:33)
[2020-04-24] MEDS: allopurinoL 100 MG TABLET PO (09:17)
[2020-04-24] MEDS: hydrALAZINE HCL 25 MG TABLET 75 MG PO ×3 (09:18→17:34)
[2020-04-24] MEDS: POLYSACCHARIDE IRON COMPLEX 150 MG CAPSULE PO ×2 (09:18→20:32)
[2020-04-24] MEDS: polyethylene glycoL 3350 17 GM POWD.PACK PO (09:18)
[2020-04-24] MEDS: amLODIPine BESYLATE 5 MG TABLET 10 MG PO (09:18)
[2020-04-24] MEDS: POTASSIUM CHLORIDE 20 MEQ TABLET.ER PO ×2 (09:19→17:34)
[2020-04-24] MEDS: SILVERGEL (ELTA) 45 ML 1 APPLIC TOPICAL (09:19)
--- NOTE | 2020-04-24 10:19 | PM.IMPN ---
Progress Note: A&P Assessment and Plan (1) Abdominal pain: Qualifiers: Abdominal location: generalized Qualified Code(s): R10.84 - Generalized abdominal pain Code(s): R10.9 - Unspecified abdominal pain Status: Acute Assessment and Plan: She reported abdominal discomfort. CT abd/pelvis demonstrated dilated small bowel consistent with ileus versus obstruction. She was made NPO overnight and NG tube was recommended but she refused NG tube. General surgery evaluated the patient and felt her symptoms were due to ileus caused by possible constipation instead of SBO since she had not abdominal surgical history. She had a bowel movement this morning and denies any N/V/abd pain. She tolerated a regular diet without any issues. She is stable at this time to be discharged once she finishes with TRC therapy. (2) Leukocytosis: Code(s): D72.829 - Elevated white blood cell count, unspecified Status: Acute Assessment and Plan: Improving. Pt has hx of polycythemia vera. UA without significant abnormality. Her right hip has no evidence of acute infection. Blood cultures were obtained and showing no growth at this time. She is afebrile. She was seen by infectious disease who recommends to continue ampicillin and minocycline until 05/05/2020. Infectious disease is greatly appreciated and recommended following up with Dr. Pérez after discharge. (3) Pitting edema: Code(s): R60.9 - Edema, unspecified Status: Acute Assessment and Plan: Venous doppler US was negative for DVT. Continue wound care. Recommend leg elevation and compression. Her BNP was elevated at 2700 but I am unsure what her baseline is for age. She normally has some edema but it is more severe during this hospitalization. She states it is improved from yesterday. I called her primary care provider and she does have a history of CKD and her creatinine can range from 1-2.0. We will continue to have her take Lasix to p.o. 40 mg twice daily and potassium supplementation for another 2 days. We will recheck a BMP and magnesium level on Tuesday.. (4) Renal insufficiency: Code(s): N28.9 - Disorder of kidney and ureter, unspecified Status: Acute Assessment and Plan: Acute on chronic kidney injury. I talked to patient's PCP. Likely multifactorial and felt that vancomycin may be a contributing factor. Cr seems to be improving as Cr was 2.2 on prior notes. Creatinine this morning was 1.4, Stable. will recheck BMP on Tuesday and have her continue with increased Lasix for 2 days. (5) DM2 (diabetes mellitus, type 2): Code(s): E11.9 - Type 2 diabetes mellitus without complications Status: Chronic Assessment and Plan: HbA1c 4.9 04/17. Blood sugars are at target and she is not on any hypoglycemics at this time. (6) Hypothyroidism: Code(s): E03.9 - Hypothyroidism, unspecified Status: Chronic Assessment and Plan: Continue levothyroxine. (7) Status post right hip replacement: Code(s): Z96.641 - Presence of right artificial hip joint Status: Acute Assessment and Plan: Post-op course was complicated by hematoma with infection requiring debridement during most recent hospital stay at [facility]. She is progressing well from a PT/OT standpoint in [facility]. There is no evidence of acute infection at this time. Infectious disease is following and recommendations are appreciated. Continue ampicillin and minocycline until 05/05/2020. (8) Polycythemia vera: Code(s): D45 - Polycythemia vera Status: Acute Assessment and Plan: She will need to follow-up with hematology outpatient. This is likely contributing to leukocytosis. (9) Gout: Code(s): M10.9 - Gout, unspecified Status: Chronic Assessment and Plan: No acute issues. Continue allopurinol. (10) Hypertension: Code(
--- NOTE | 2020-04-24 13:34 | PCDIET ---
Nutrition Follow-Up Complete: Nutrition Diagnosis: Inadequate protein intake related to integumentary integrity, as evidenced by lower extreminty ulcer(s) and unhealed hip incision. Nutrition Goal: Patient will consume at least 90% of recommended amount of protein daily. Goal in progress. Patient consuming 75-100% of most meals on regular diet. Recommend resuming Marcellus (80kcal, 14g amino acid) BID and adding Ensure Enlive (350kcal, 20g protein) 1x daily to promote skin integrity and weight stability. Regular diet appropriate at this time. Last recorded weight is 61.6 kg which is decreased. Bowel Motility: +BM today, small. Labs Reviewed: Hgb (9.4), Hct (29.7), BUN (33), Cr (1.4), Na (136) Meds Noted: Albuterol, Norvasc, Ampicillin, Lasix, Hydralazine, Miralax, Nifirex-150, KCl, Senna, Zocor Additional Notes: Integumentary notes reviewed; no significant changes noted. Will continue to monitor with same goal. Nutrition Monitoring and Evaluation: Follow up in 5 days.
[2020-04-24 15:31] VITALS: BP 137/57; PULSE 63; RESP 20; TEMP 35.9; O2SAT 95
[2020-04-24] MEDS: ASPIRIN 81 MG ENTERIC TABLET PO (20:29)
[2020-04-24] MEDS: TEMAZEPAM (*CRX) 15 MG CAPSULE PO (20:31)
[2020-04-24 20:32] VITALS: PULSE 68
[2020-04-24] MEDS: SENNA/DOCUSATE SODIUM TABLET 1 TAB PO (20:33)
[2020-04-24] MEDS: QUEtiapine FUMARATE 25 MG TABLET 50 MG PO (20:33)
[2020-04-24] MEDS: SIMVASTATIN 20 MG TABLET PO (20:34)
[2020-04-24 22:00] VITALS: BP 160/67; PULSE 70; RESP 19; TEMP 36.2; O2SAT 96
[2020-04-25] MEDS: LEVOTHYROXINE SODIUM 75 MCG TABLET PO (05:44)
[2020-04-25] MEDS: MINOCYCLINE HCL 50 MG CAPSULE 100 MG PO (05:44)
[2020-04-25] MEDS: AMPICILLIN TRIHYDRATE 500 MG CAPSULE PO (05:44)
[2020-04-25 06:00] VITALS: BP 120/71; PULSE 66; RESP 19; TEMP 36.3; O2SAT 99
[2020-04-25] MEDS: FUROSEMIDE 40 MG TABLET PO (10:03)
[2020-04-25] MEDS: amLODIPine BESYLATE 5 MG TABLET 10 MG PO (10:03)
[2020-04-25] MEDS: hydrALAZINE HCL 25 MG TABLET 75 MG PO ×2 (10:03→12:53)
[2020-04-25] MEDS: polyethylene glycoL 3350 17 GM POWD.PACK PO (10:04)
[2020-04-25] MEDS: POTASSIUM CHLORIDE 20 MEQ TABLET.ER PO (10:04)
[2020-04-25 10:05] VITALS: PULSE 64
[2020-04-25] MEDS: allopurinoL 100 MG TABLET PO (10:05)
[2020-04-25] MEDS: POLYSACCHARIDE IRON COMPLEX 150 MG CAPSULE PO (10:05)
[2020-04-25] MEDS: atenoloL 50 MG TABLET 100 MG PO (10:05)
[2020-04-25] MEDS: SILVERGEL (ELTA) 45 ML 1 APPLIC TOPICAL (10:06)
[2020-04-25 10:15] VITALS: PULSE 64; RESP 19; O2SAT 99
--- NOTE | 2020-04-25 10:17 | WPDNEURORHBP ---
Subjective Date/time seen: 04/25/20 10:17 Interval history: This 84-year-old woman has been here for previous several days after having had wound infection and complication afterwards after having had the right hip surgery she has been followed by our hospitalist team that notes were reviewed the patient is ready to be discharged to have follow-up with the Infectious Disease and also follow up with the treating surgeon the notes of the physicians were reviewed and the communicated to the patient the patient as usual is very well is smiling and quite eager to be discharged home she denies any headache nausea vomiting fevers chills sore throat Review of Systems Review of Systems: All systems reviewed & are unremarkable except as noted in HPI and below Functional Status Ambulation Ability Ability to Ambulate 10 Feet: Independent Ability to Ambulate 50 Feet With 2 Turns: Independent Ability to Ambulate 150 Feet: Independent Ambulation Assistive Devices: Walker, Wheeled Transfers Ability Ability to Transfer In/Out of Chair: Independent Exam Const: General: comfortable and no acute distress HENMT: General nose exam: Normal nares present Mouth: Yes moist mucous membranes Eyes: General: appearance normal, both eyes and all related structures Neck: Neck: supple and no JVD Resp: Effort & Inspection: normal respiratory effort Auscultation: clear to auscultation bilaterally Cardio: Rate: regular rate Rhythm: regular rhythm GI: GI Palp: Yes Soft to palpation Auscultation: normal bowel sounds Skin: General skin exam: normal color and no rashes or lesions noted Neuro: Other: patient is awake alert and well oriented time place and person has normal speech and language functions and has significantly improved overall both physically and intellectually Extrem: General: normal to inspection Other: the edema of the lower extremities is much better and patient's drainage from the right hip incision is also clean and healthy there is no sign of active infection Psych: Mental Status: mental status grossly normal Objective Data Vital Signs Vital Signs: Vital Signs - 24 hr 04/24/20 15:31 04/24/20 20:32 04/24/20 22:00 Temperature 35.9 C L 36.2 C L Pulse Rate 63 68 70 Respiratory Rate 20 19 Blood Pressure 137/57 L 160/67 H Pulse Oximetry 95 96 04/25/20 06:00 04/25/20 10:05 Temperature 36.3 C L Pulse Rate 66 64 Respiratory Rate 19 Blood Pressure 120/71 Pulse Oximetry 99 Intake/Output Intake/Output: Intake & Output 04/22/20 04/23/20 04/24/20 04/25/20 23:59 23:59 23:59 23:59 Intake Total 1040 840 720 240 Balance 1040 840 720 240 Meds/Results Medications: Active Medications Generic Name Dose Route Start Last Admin Trade Name Freq PRN Reason Stop Dose Admin Acetaminophen 650 mg 04/16/20 21:00 Tylenol Tablet PO Q4H PRN Pain (Scale Score 1-3) Albuterol 2.5 mg 04/19/20 13:13 Albuterol Sulf Neb 2.5mg/0.5ml INHALATION TIDRT PRN Shortness Of Breath Or Wheezing Allopurinol 100 mg 04/17/20 09:00 04/25/20 10:05 Zyloprim PO 100 mg DAILY GLADIS Administration Amlodipine Besylate 10 mg 04/17/20 09:00 04/25/20 10:03 Norvasc PO 10 mg DAILY GLADIS Administration Ampicillin 500 mg 04/16/20 22:00 04/25/20 05:44 Ampicillin Trihydrate Capsule PO 05/05/20 23:59 500 mg Q8HR GLADIS Administration Aspirin 81 mg 04/16/20 21:00 04/24/20 20:29 Aspirin Ec PO 81 mg HS GLADIS Administration Atenolol 100 mg 04/16/20 21:00 04/25/20 10:05 Tenormin PO 100 mg Q12HR GLADIS Administration Furosemide 40 mg 04/22/20 17:00 04/25/20 10:03 Lasix Tablet PO 40 mg BID GLADIS Administration Hydralazine HCl 75 mg 04/17/20 09:00 04/25/20 10:03 Apresoline Tablet PO 75 mg TID GLADIS Administration Ipratropium [place] 0.5 mg 04/19/20 13:13 Atrovent Neb INHALATION TIDRT PRN Shortness Of Breath Or Wheezing Levothyroxine Sodium 75 mcg
--- NOTE | 2020-04-29 15:16 | PC.NURSE ---
Blood cx shows no growth.
--- NOTE | 2020-04-30 12:03 | PM.DS ---
DS: Admitting Diagnosis Admitting Diagnosis Admitting Diagnosis: Post op wound infection Right hip DS: Discharge Diagnosis Discharge Diagnosis (1) Leukocytosis: Code(s): D72.829 - Elevated white blood cell count, unspecified Status: Acute (2) Pitting edema: Code(s): R60.9 - Edema, unspecified Status: Acute (3) Abnormal CT of the abdomen: Code(s): R93.5 - Abnormal findings on diagnostic imaging of other abdominal regions, including retroperitoneum Status: Acute (4) Abdominal pain: Qualifiers: Abdominal location: generalized Qualified Code(s): R10.84 - Generalized abdominal pain Code(s): R10.9 - Unspecified abdominal pain Status: Acute (5) Hyperlipidemia: Code(s): E78.5 - Hyperlipidemia, unspecified Status: Chronic (6) Gout: Code(s): M10.9 - Gout, unspecified Status: Chronic (7) Hypertension: Code(s): I10 - Essential (primary) hypertension Status: Chronic (8) Hypothyroidism: Code(s): E03.9 - Hypothyroidism, unspecified Status: Chronic (9) DM2 (diabetes mellitus, type 2): Code(s): E11.9 - Type 2 diabetes mellitus without complications Status: Chronic (10) Renal insufficiency: Code(s): N28.9 - Disorder of kidney and ureter, unspecified Status: Acute (11) Polycythemia vera: Code(s): D45 - Polycythemia vera Status: Acute (12) Status post right hip replacement: Code(s): Z96.641 - Presence of right artificial hip joint Status: Acute (13) Postoperative wound infection of right hip: Code(s): T81.49XA - Infection following a procedure, other surgical site, initial encounter Status: Acute DS: Summary Hospital Course Reason for hospitalization: the patient was admitted with multiple medical problems however the main diagnosis for the rehab was status post surgery for the right hip followed by the hip infection for she which she was appropriately treated received the medical management PT OT and gait training and also hospitalist were involved with her care most of her medical issues resolved during the course of hospitalization and she was able to achieve the following independent measures during the course of hospitalization Hospital Course: eating independent, oral hygiene independent, toileting independent, bathing setup, upper body dressing independent, lower body dressing supervision, footwear independent, rolling in bed independent, sitting to lying independent, lying to sitting independent, sit to stand independent, chair transfers independent, toilet transfers independent, car transfers independent, walking 10 feet independent, walking 50 feet with 2 turns independent, walking 150 feet independent, walking 10 feet uneven surfaces independent, [place]ow step independent, 4 steps independent, 12 steps independent, picking of object independent, wheelchair not applicable The patient was sent home with home health to follow no falls were recorded Time Spent with Patient Time attestation: Total time spent providing and/or coordinating discharge services: Exam Const: General: comfortable and no acute distress HENMT: General nose exam: Normal nares present Mouth: Yes dry mucous membranes Eyes: General: appearance normal, both eyes and all related structures Neck: Neck: supple and no JVD Resp: Effort & Inspection: normal respiratory effort Auscultation: clear to auscultation bilaterally Cardio: Rate: regular rate Rhythm: regular rhythm GI: GI Palp: Yes Soft to palpation Auscultation: normal bowel sounds Skin: General skin exam: normal color and no rashes or lesions noted Neuro: Other: patient remained awake alert well oriented throughout the course of hospitalization and significantly improved in her activities of daily living as it is indicated by the function improvement measures the laboratory daughter herself evident and can be found in t
== END 2020-04-25 13:18 | disposition home health service (06) | DRG 949 ==
PROVIDERS: Nurse Practitioner; Physician Assistant; Psychiatry & Neurology Neurology; Admitting Provider Psychiatry & Neurology Neurology; PCP Physician Assistant; Visit Provider Psychiatry & Neurology Neurology
DX: T81.49XD Infection following a procedure, other surgical site, subsequent encounter (principal); E87.1 Hypo-osmolality and hyponatremia; Z96.641 Presence of right artificial hip joint; D72.829 Elevated white blood cell count, unspecified; D45 Polycythemia vera; E03.9 Hypothyroidism, unspecified; E11.29 Type 2 diabetes mellitus with other diabetic kidney complication; E78.5 Hyperlipidemia, unspecified; H91.90 Unspecified hearing loss, unspecified ear; I10 Essential (primary) hypertension; M10.9 Gout, unspecified; M19.90 Unspecified osteoarthritis, unspecified site; N28.9 Disorder of kidney and ureter, unspecified; R60.9 Edema, unspecified; Z95.0 Presence of cardiac pacemaker; Z98.890 Other specified postprocedural states; Z89.422 Acquired absence of other left toe(s)
CPT/HCPCS: 36415; 71046; 74018; 74176; 80048; 80053; 81001; 83036; 83605; 83615; 83690; 83735; 83880; 85025; 87040; 87070; 87205; 93970; 94640; 97110; 97116; 97161; 97165; 97530; 97535; A9270; J1644; J3475